=== PATIENT | male | born 1960 | race Caucasian/White ===

== ENCOUNTER 2022-03-06 12:11 | Emergency (ER) | payer BC, SELFPAY ==
[2022-03-06 12:20] VITALS: BP 170/106; PULSE 115; RESP 18; TEMP 35.7; O2SAT 97; BMI 38.0
[2022-03-06 13:03] LABS: Appearance Urine Cloudy (Clear); Bilirubin Urine 1+ (Negative); Color Urine Yellow (Yellow); Glucose Urine 1+ (Negative); Ketones Urine Trace (Negative)
[2022-03-06 13:04] LABS: Blood Urine 3+ (Negative); Leukocyte Esterase Urine Negative (Negative); Nitrite Urine Negative (Negative); Protein Urine 3+ (Negative); RBC Urine >100 (0-2); Specific Gravity Urine >= 1.030 (1.000-1.030); Squamous Epithelial Cell Urine Few (None-Few); Urobilinogen Urine 0.2 (0.2-1.0); pH Urine 5.5 (5.0-8.5)
[2022-03-06 13:05] LABS: Amorphous Sediment Urine Moderate; Bacteria Urine Many; Mucus Urine Moderate
--- NOTE | 2022-03-06 13:06 | ED_ITS ---
HPI - General Adult General Time Seen by Provider: 13:06 Date Seen: 03/06/22 Chief complaint: Urogenital Problems, Male Stated complaint: Difficulty urinating Time Seen by Provider: 03/06/22 12:27 Source: patient Mode of arrival: ambulatory Limitations: no limitations History of Present Illness HPI narrative: Patient is a 61 year white male who is generally very healthy, over new year's and a day or 2 after he developed a flu-like illness with diarrhea body aches chills fever. He seemed to be better today but developed dysuria inability to fully void, some discolored urine, perhaps mild hematuria. He has not had any history urinary tract infection no history of prostatism, no history of prostatitis. The patient has had no chest pain, breathing problem, back pain. He has frequent urination and frequent dysuria, he feels like he is unable to fully void. Has been she has been healthy in the past Related Data Home Medications Medication Instructions Recorded Confirmed No Known Home Medications 03/06/22 03/06/22 Previous Rx's Medication Instructions Recorded ciprofloxacin HCl 500 mg tablet 500 mg PO BID 10 days #20 tabs 03/06/22 (Cipro) phenazopyridine 200 mg tablet 200 mg PO TID PRN pain #10 tabs 03/06/22 (Pyridium) Allergies Allergy/AdvReac Type Severity Reaction Status Date / Time meperidine [From Demerol] Allergy Unknown Verified 03/06/22 12:28 Review of Systems Status of ROS: Reports: 6 or more systems reviewed and unremarkable except as noted in History and below PFSH PFSH Social History Smoking Status: Never smoker How often do you have a drink containing alcohol: never AUDIT-C Alcohol total score: 0 Non-prescribed substance use: denies use Exam Narrative: Exam Narrative: Objective: The patient's vital signs show elevated blood pressure, he appears mildly distressed only by a has some urinary symptoms, he frequently has to void but only voids small amounts Alert orient x3 Abdomen is benign soft Negative CVA tenderness Mental status appropriate Good peripheral perfusion noted skin warm and dry Const: Vital Signs, click to edit/add: Vital Signs - 24 hr 03/06/22 12:20 03/06/22 14:27 Temperature 96.3 F L Pulse Rate [Pulse Oximeter] 115 H 94 Respiratory Rate 18 20 Blood Pressure [Le ft Upper Arm] 170/106 H 160/104 H Pulse Oximetry 97 96 Oxygen Delivery Me thod Room Air Room Air Course Vital Signs Vital signs: Initial Vital Signs Temperature 96.3 F L 03/06/22 12:20 Temperature Source Temporal Artery Scan 03/06/22 12:20 Pulse Rate 115 H 03/06/22 12:20 Respiratory Rate 18 03/06/22 12:20 Blood Pressure 170/106 H 03/06/22 12:20 Blood Pressure Mean 127 03/06/22 12:20 Blood Pressure Position Standing 03/06/22 12:20 Pulse Oximetry 97 03/06/22 12:20 Oxygen Delivery Method 03/06/22 12:20 Vital Signs Temperature 96.3 F L 03/06/22 12:20 Pulse Rate 115 H 03/06/22 12:20 Respiratory Rate 18 03/06/22 12:20 Blood Pressure 170/106 H 03/06/22 12:20 Pulse Oximetry 97 03/06/22 12:20 Oxygen Delivery Method 03/06/22 12:20 Temperature 96.3 F L 03/06/22 12:20 Pulse Rate 94 03/06/22 14:27 Respiratory Rate 20 03/06/22 14:27 Blood Pressure 160/104 H 03/06/22 14:27 Pulse Oximetry 96 03/06/22 14:27 Oxygen Delivery Method 03/06/22 14:27 Medical Decision Making MDM Narrative Medical decision making narrative: Patient has dysuria frequency had a prior viral type illness. Suspect urinary tract infection, he does not gives a history of prostatism or prostatitis. He does have infrequent painful voiding and urethra were urethral irritation symptoms. Will give him an IV fluid, IV morphine for bladder spasm and for discomfort, Pyridium orally, IV Rocephin, will check a urinalysis lab studies. Disposition pending findings above. Addendum: Patient has a lot of hematuria, lot of bacteria in his urine. This is consistent with a urinary tract infection. He feels better after the morphine IV fluid and Rocephin. Upon along go home on Cipro and Pyridium. He also got peridium in the ER. Advised it will turn his urine color orange. He also has an elevated glucose of 260 and needs to have this recheck with his regular physician in the next couple of days. Will prescribe him Cipro and Pyridium for home. He was in agreement with the plan. Lab Data Labs: Lab Results 03/06/22 03/06/22 03/06/22 Range/Units 12:33 13:09 13:09 WBC 10.38 (4.50-11.00) K/uL RBC 5.59 (4.30-5.90) m/uL Hgb 16.8 (13.5-17.5) gm/dL Hct 49.5 (37.0-53.0) % MCV 89 (80-100) fL MCH 30 (26-34) pg MCHC 34 (32-36) gm/dL RDW Coeff of Anabel 11.7 (11.5-15.5) % Plt Count 417 (140-440) K/uL Neut % (Auto) 80.1 H (42.0-72.0) % Lymph % (Auto) 14.0 L (20-44) % [place] % (Auto) 4.8 (0.0-11.0) % Eos % (Auto) 0.6 (0.0-7.0) % Baso % (Auto) 0.3 (0.0-3.0) % Neut # (Auto) 8.30 H (1.7-7.0) K/uL Lymph # (Auto) 1.50 (0.90-2.90) K/uL [place] # (Auto) 0.50 (0.00-0.90) K/UL Eos # (Auto) 0.06 (0.00-0.50) K/uL Baso # (Auto) 0.03 (0.00-0.30) K/uL Sodium 141 (135-149) mmol/L Potassium 3.9 (3.6-5.1) mmol/L Chloride 105 (96-114) mmol/L Carbon Dioxide 25 (20-32) mmol/L BUN 17 (7-30) mg/dL Creatinine 0.8 (0.5-1.5) mg/dL Estimated Creat Clear 107.78 Estimated GFR 101 ml/min Glucose 266 H (60-115) mg/dL Calcium 9.7 (8.4-10.6) mg/dL C-Reactive Protein 1.2 H (0.5-1.0) mg/dL Urine Color Yellow (Yellow) Urine Appearance Cloudy A (Clear) Urine pH 5.5 (5.0-8.5) Ur Specific [place] >= 1.030 (1.000-1.030) Urine Protein 3+ A (Negative) Urine Glucose (UA) 1+ A (Negative) Urine Ketones Trace A (Negative) Urine Blood 3+ A (Negative) Urine Nitrite Negative (Negative) Urine Bilirubin 1+ A (Negative) Urine Urobilinogen 0.2 (0.2-1.0) Ur Leukocyte Esterase Negative (Negative) Urine RBC >100 A (0-2) Urine WBC 5-10 A (0-5) Ur Squamous Epith Cells Few (None-Few) Amorphous Sediment Moderate A (None) Urine Bacteria Many A (None) Urine Mucus Moderate A (None) Discharge Plan Discharge Clinical Impression: Urinary tract infection, Elevated blood pressure reading, Hyperglycemia Patient Disposition: Home w/ Parent or Adult Condition: Improved Instructions: Urinary Tract Infection in Men (DC) Additional Instructions: Light activity today, then activity as tolerated. Cipro 250 mg twice a day times 10 days, Pyridium as needed for urinary symptoms. Update regular physician within the next couple of days if not improving, return to ED sooner problems concerns worsening. Recheck blood pressure with regular doctor, and a fasting blood sugar to check his blood sugar again as it is high today. Activity Level: Light activity Discharge Diet: Regular Prescriptions: New ciprofloxacin HCl [Cipro] 500 mg tablet 500 mg PO BID 10 Days Qty: 20 0RF phenazopyridine [Pyridium] 200 mg tablet 200 mg PO TID PRN (Reason: pain) Qty: 10 0RF No Action No Known Home Medications Stand Alone Forms: [employer] Info Instructions
[2022-03-06 13:12] LABS: Basophils Absolute Auto 0.03 K/uL (0.00-0.30); Basophils Percent Auto 0.3 % (0.0-3.0); Eosinophils Absolute Auto 0.06 K/uL (0.00-0.50); Eosinophils Percent Auto 0.6 % (0.0-7.0); Hematocrit 49.5 % (37.0-53.0); Hemoglobin* 16.8 gm/dL (13.5-17.5); Immature Granulocytes Abs Auto 0.02 K/uL (0.00-0.30); Immature Granulocytes Pct Auto 0.2 %; Mean Corpuscular HGB Conc 34 gm/dL (32-36); Mean Corpuscular Hemoglobin 30 pg (26-34); Mean Corpuscular Volume 89 fL (80-100); Monocytes Percent Auto 4.8 % (0.0-11.0); Neutrophils Percent Auto 80.1 % (42.0-72.0); Platelet Count* 417 K/uL (140-440); RDW Coefficient of Variation % 11.7 % (11.5-15.5); Red Blood Count 5.59 m/uL (4.30-5.90); White Blood Count* 10.38 K/uL (4.50-11.00)
[2022-03-06 13:14] LABS: Slide Review Reflex No
[2022-03-06] MEDS: PHENAZOPYRIDINE HCL 200 MG TABLET PO (13:20)
[2022-03-06] MEDS: 0.9 % SODIUM CHLORIDE 1000 ml 1,000 ML 6000 ML IV (13:20)
[2022-03-06] MEDS: MORPHINE 4 MG/ML INJ 2 MG IVP (13:21)
[2022-03-06] MEDS: cefTRIAXone 1 GM in 0.9 % SODIUM CHLORIDE Mini-bag 100 ML IVPB (13:23)
[2022-03-06 13:31] LABS: Chloride* 105 mmol/L (96-114); Potassium* 3.9 mmol/L (3.6-5.1); Sodium* 141 mmol/L (135-149)
[2022-03-06 13:34] LABS: Blood Urea Nitrogen* 17 mg/dL (7-30); Carbon Dioxide* 25 mmol/L (20-32); Creatinine* 0.8 mg/dL (0.5-1.5); Est. Creatinine Clearance* 107.78; Estimated Glomerular Filt Rate 101 ml/min
[2022-03-06 13:35] LABS: Calcium* 9.7 mg/dL (8.4-10.6); Glucose* 266 mg/dL (60-115)
[2022-03-06 13:37] LABS: C Reactive Protein* 1.2 mg/dL (0.5-1.0)
[2022-03-06 14:27] VITALS: BP 160/104; PULSE 94; RESP 20; O2SAT 96
== END 2022-03-06 14:30 | disposition home or self-care (01) ==
PROVIDERS: Emergency Provider Family Medicine
DX: N39.0 Urinary tract infection, site not specified (principal); R03.0 Elevated blood-pressure reading, without diagnosis of hypertension; R73.9 Hyperglycemia, unspecified
CPT/HCPCS: 36415; 80048; 81001; 85025; 86140; 87086; 96365; 96375; 99284; A9270; J0696; J2270; J7030

== ENCOUNTER 2023-08-12 06:13 | Day surgery (SDC) | payer BC, SELFPAY ==
[2023-08-12] VITALS (18 sets, daily range): BP systolic 132–182; BP diastolic 82–112; PULSE 56–82; RESP 16; TEMP 36.2–36.9; O2SAT 92–100; BMI 33.0
--- OUTSIDE RECORDS SUMMARY | 2023-08-12 06:16 | XMS_ITS | Clinical Summary ---
Author Organization [facility] Address [place], [place] [address] Care Team Providers Care American Sign Language Interpreter Name Role Phone Marlene Moore RN Unavailable [phone] Jhonatan Boone MD Primary Care Provider Allergies Active Allergy Reactions Criticality Noted Date Comments Meperidine *Unknown 05/01/2015 surgery Medications Medication Sig Dispensed Refills Start Date End Date Status blood-glucose meterIndications: Type 2 diabetes mellitus without complication, without long-term current use of insulin (HC) Inject subcutaneous. Dispense meter, test strips, lancets covered by pt ins. E11.9 NIDDM type II - Test 2 times/day. Reason: High A1C 1 Each 03/20/2022 Active aspirin (ECOTRIN) 81 mg enteric coated tabletIndications :Type 2 diabetes mellitus without complication, without long-term current use of insulin (HC) Take 1 Tablet (81 mg) by mouth once daily with a meal. 0 04/17/2022 Active Accu-Chek Softclix LancetsIndication s:Type 2 diabetes mellitus without complication, without long-term current use of insulin (HC) USE TO TEST 2 TIMES DAILY 200 Each 3 05/27/2022 Active polyethylene glycol-electrolyt e (GOLYTELY) 236-22.74-6.74 -5.86 gram suspensionIndicat ions:Encounter for screening colonoscopy Drink 2 liters the day before the procedure and 2 liters 6 hours prior to procedure. 4000 mL 09/06/2022 Active lisinopriL (PRINIVIL; ZESTRIL) 10 mg tabletIndications :Benign essential HTN Take 1 Tablet (10 mg) by mouth once daily. 90 Tablet 3 01/16/2023 Active Potassium Citrate 15 mEq Extended-Release tabletIndications :Uric acid kidney stone Take 1 Tablet (15 mEq) by mouth once daily. 90 Tablet 3 01/16/2023 Active metFORMIN (GLUCOPHAGE XR) 500 mg Extended-Release tabletIndications :Type 2 diabetes mellitus without complication, without long-term current use of insulin (HC) Take 2 Tablets (1,000 mg) by mouth two times daily with meals. 360 Tablet 1 01/16/2023 Active blood sugar diagnostic (Accu-Chek Guide test strips) stripIndications: Type 2 diabetes mellitus without complication, without long-term current use of insulin (HC) USE TO TEST 2 TIMES PER DAY 200 Each 3 08/06/2023 Active blood sugar diagnostic (Blood Glucose Test) stripIndications: Type 2 diabetes mellitus without complication, without long-term current use of insulin (HC) Test two times per day. 100 Each 03/20/2022 Discontinued Active Problems Problem Noted Date Diagnosed Date Lipoma of right upper extremity 05/14/2023 Skin tag, large right hamstring area 05/14/2023 Colon polyp 09/12/2022 Overview: Colonoscopy 08/2022 2-TA, repeat in 7 years Uric acid kidney stone 03/20/2022 Type 2 diabetes mellitus wit hout complication, without long-term current use of insulin 03/20/2022 Hematuria 03/20/2022 Benign essential HTN 03/20/2022 Obesity, Class II, BMI 35-39.9 03/20/2022 Resolved Problems Problem Noted Date Diagnosed Date Resolved Date Obesity 03/12/2022 03/20/2022 Encounters Date Type Department Care Team Description 08/06/2023 Refill [facility] [address] [place] [address] Jhonatan Boone MD Refill Request (Accu-chek Guide Test Strips) 07/31/2023 11:50 AM CDT Preop Visit [facility] [address] [place] [address] Jhonatan Boone MD Diabetes (6 month follow up); Preoperative Exam (DOS: [facility] 07/30/2023 Travel 06/11/2023 2:00 PM CDT Office Visit [facility] [address] [place] [address] Francheska Barry MD Consult (Gallbladder referred by Dr. Boone) 06/10/2023 Travel 06/03/2023 Travel 05/31/2023 Telephone [facility] [address] [facility] [place] [address] Jhonatan Boone MD Follow Up 05/31/2023 Orders Only [facility] [address] [place] [address] Jhonatan Boone MD <No scans attached> 05/30/2023 10:30 AM CDT Ancillary Procedure [facility] [address] [place] [address] 05/30/2023 Travel 05/14/2023 10:55 AM CDT Office Visit [facility] [address] [facility] [place] [address] Jhonatan Boone MD Pain (Pain started in mid-right back, radiated into abdomen, started 05/08/2023, vomiting, diarrhea); Lump (Inside of right arm, by elbow, noticed about 3 weeks ago) 05/14/2023 Travel from Last 3 Months Immunizations Name Administration Dates Next Due COVID-19 Vaccine Spikevax (M oderna 50mcg/0.5mL) 12YO+ [id number] Formula PF 01/02/2023 COVID-19 vaccine (Pfizer-Bio NTech 30mcg/0.3mL) 12YO+ BIVALENT PF, MDV 12/24/2021 COVID-19 vaccine (Pfizer-Bio NTech 30mcg/0.3mL) 12YO+ FAWN-SUCROSE PF, MDV 07/06/2021 COVID-19 vaccine (Pfizer-Bio NTech 30mcg/0.3mL) PF, MDV 01/18/2021,05/06/2020,04/15/2020 Influenza RIV4 (Age 18+ Year s) PRESERV FREE 12/19/2020 Influenza, IIV4 11/19/2022, 0,12/22/2018,12/10 Influenza,CCIIV4 PRESERV FREE 12/24/2021 Pneumococcal Conj 20-valent (Prevnar 20) 01/16/2023 RSV, Recombinant ADJ Reconst ituted (Arexvy 120MCG/0.5mL) 03/20/2023 Tdap 01/16/2023 Zoster (Shingrix-RZV, recombinant) 03/20/2023, Family History Medical History Relation Name Comments Other Maternal Grandfather Alz kim's Anesthesia Problem No Family History Relation Name Status Comments Maternal Grandfather Social History Tobacco Use Types Packs/Day Years Used Date Smoking Tobacco: Never Tobacco Cessation:Counseling Given: No Alcohol Use Standard Drinks/Week Comments Yes 0 (1 standard drink = 0.6 oz pur e alcohol) very little PHQ-2 Answer Date Recorded PHQ-2 TOTAL SCORE 0 07/31/2023 Social Connections Answer Date Recorded Frequency of Communication with Friends and Fami ly 0 05/14/2023 Financial Resource Strain Answer Date R ecorded Difficulty of Paying Living Expenses 3 05/14/2023 Difficulty of Paying Living Expenses Not on file 05/14/2023 Food Insecurity Answer Date Recorded Worried About Running Out of Food in the Last Ye ar 1 05/14/2023 Transportation Needs Answer Date Record ed Lack of Transportation (Medical) 1 05/14/2023 Housing Stability Answer Date Recorded Unable to Pay for Housing in the Last Year 1 05/14/2023 Sex and Gender Information Value Date Recorded Sex Assigned at Not on file Gender Identity Not on file Sexual Orientation Not on file Obstetrics History Last Filed Vital Signs Vital Sign Reading Time Taken Comments Blood Pressure 128/75 07/31/2023 12:14 PM CDT Pulse 79 07/31/2023 11:39 AM CDT Temperature 36.8 ??C (98.3 ??F) 05/01/2015 3:00 PM CS T Respiratory Rate 16 09/10/2022 11:45 AM CDT Oxygen Saturation 98% 07/31/2023 11:39 AM CDT Inhaled Oxygen Concentration - - Weight 104.3 kg (230 lb) 07/31/2023 11:39 AM CDT Height 179 cm (5' 10.47) 07/31/2023 11:39 AM CD T Body Mass Index 32.56 07/31/2023 11:39 AM CDT Plan of Treatment Upcoming Encounters Date Type Department Care Team (Late st Contact Info) Description 08/12/2023 8:00 AM CDT Office Visit [facility] at [facility] [address] [place] [address] Francheska Barry MD [address] [place] [address] 01/23/2024 10:30 AM HUMAN RESOURCES TALENT MANAGER Office Visit [facility] [address] [place] [address] Jhonatan Boone MD [address] [place] [address] Health Maintenance Due Date Last Done Comments Influenza for age 50-64 11/02/2023 11/20/19, 12/24/2021, 12/19/2020, Additional history exists BMI (ht and wt on same day) for age 18+ 07/30/2024 07/31/2023, 01/16/2023, 07/16/2022, Additional history exists Depression screening for age 12+ 07/30/2024 07/31/19, 07/16/2022 Lipids for age 45-75 01/17/2028 01/16/2023, 03/12/19 Colonoscopy through age 75 09/10/202909/10, 09/10/2022, 09/10/2022 Tetanus booster 01/16/2033 01/16/2023 HIV for age 15-65 Completed 03/12/2022 Hepatitis C screening for ag e 18-79 Completed 03/12/2022 COVID-19 vaccine series Completed 01/03/20, 12/24/2021, 07/06/2021, Additional history exists Pneumococcal series for age 6-64 Completed 01/17/20 Tdap Completed 01/16/2023 Zoster (shingles) series for age 50+ Completed 03/20/2023, 01/16/2023 Procedures Procedure Name Priority Date/Time Associated Diagnosis Comments HEMOGLOBIN Routine 07/31/2023 11:33 AM CDT Preop examination PSA TOTAL SCREEN Routine 07/31/2023 11:3 3 AM CDT Prostate cancer screening BASIC METABOLIC PANEL Routine 07/31/2023 11:33 AM CDT Type 2 diabetes mellitus without complication, without long-term current use of insulin (HC) HEMOGLOBIN A1C Routine 07/31/2023 11:33 AM CDT Type 2 diabetes mellitus without complication, without long-term current use of insulin (HC) PATH TISSUE EXAM Routine 06/11/2023 3:00 PM CDT Skin tag, large right hamstring area US ABDOMEN LIMITED RUQ Routine 05/30/2023 10:58 AM CDT Abdominal pain, RUQ (right upper quadrant) CBC WITH AUTO DIFFERENTIAL Routine 05/14/2023 11:41 AM CDT Abdominal pain, RUQ (right upper quadrant) BASIC METABOLIC PANEL Routine 05/14/2023 11:41 AM CDT Abdominal pain, RUQ (right upper quadrant) HEPATIC FUNCTION PANEL Routine 05/14/2023 11:41 AM CDT Abdominal pain, RUQ (right upper quadrant) CBC WITH AUTO DIFFERENTIAL Routine 05/14/2023 11:41 AM CDT Abdominal pain, RUQ (right upper quadrant) LIPID PANEL W REFLEX MEASURED LDL Add On 01/16/2023 9:10 AM HUMAN RESOURCES TALENT MANAGER Type 2 diabetes mellitus without complication, without long-term current use of insulin (HC) COLONOSCOPY SCREENING Routine 09/10/2022 10:20 AM CDT Screening for colon cancer LC HIV-1/O/2, 4TH GENERATION Routine 03/12/2022 11:00 AM HUMAN RESOURCES TALENT MANAGER Screening for HIV (human immunodeficiency virus) LC HCV ANTIBODY RFX TO QUANT PCR Routine 03/12/2022 11:00 AM HUMAN RESOURCES TALENT MANAGER Need for hepatitis C screening test from Last 3 Months or Most Recently Relevant to Health Maintenance Results * HEMOGLOBIN (07/31/2023 11:33 AM CDT) HEMOGLOBIN 15.3 13.5 - 17.5 g/dL 07/31/2023 11:43 AM CDT [facility] MCV 90 80 - 100 fL 07/31/2023 11:43 AM CDT [facility] Blood BLOOD SPECIMEN / Unknown Venipuncture / Unknown 07/31/2023 11:33 AM CDT 07/31/2023 11:34 AM CDT Jhoantan Boone MD HEMATOLOGY Performing Organization Address City/State/[facility] Co de Phone Number [facility] [address] [place] [address], * HEMOGLOBIN A1C MONITORING (POCT) (07/31/2023 11:33 AM CDT) HEMOGLOBIN A1C MONITORING (POCT) 5.9 <=6.4 % 07/31/2023 11:44 AM CDT [facility] Blood BLOOD SPECIMEN / Unknown Venipuncture / Unknown 07/31/2023 11:33 AM CDT 07/31/2023 11:34 AM CDT Narrative [facility] - 07/31/2023 11:44 AM CDT ? (<=6.9%) ? Indicates good control ? (7.0% to 7.9%) ? Indicates fair control ? (>=8.0%) ? Indicates poor control ?? NOTE: ??These thresholds are guidelines and ?individual targets may vary. Falsely low levels may be seen with: Recent Transfusion, Recent Significant Blood Loss, Hemolytic Diseases, or Falsely elevated levels may be seen with: Untreated Anemias, Splenectomy ? Jhonatan Boone MD CHEMISTRY [facility] [address] [place] [address], * (ABNORMAL) BASIC METABOLIC PANEL (07/31/2023 11:33 AM CDT) Only the most recent of2 resultswithin the time period is included. SODIUM 139 136 - 145 mmol/L 08/01/2023 1:10 AM CDT [facility] POTASSIUM 4.6 3.5 - 5.1 mmol/L 08/01/2023 1:10 AM CDT [facility] CHLORIDE 100 98 - 107 mmol/L 08/01/2023 1:10 AM T [facility] CO2,TOTAL 28 22 - 29 mmol/L 08/01/2023 1:10 AM T [facility] ANION GAP 11 5 - 18 08/01/2023 1:10 AM CDT [facility] GLUCOSE 109(H) 70 - 99 mg/dL 08/01/2023 1:10 AM T [facility] CALCIUM 9.9 8.8 - 10.2 mg/dL 08/01/2023 1:10 AM T [facility] BUN 13 8 - 23 mg/dL 08/01/2023 1:10 AM T [facility] CREATININE 0.81 0.70 - 1.20 mg/dL 08/01/2023 1:10 AM T [facility] BUN/CREAT RATIO 16 10 - 20 4 1:10 AM T [facility] eGFR >90 >90 mL/min/1.7 3m2 08/01/2023 1:10 AM T [facility] Comment:As of 2021, eG FR is calculated by the CKD-EPI creatinine equation without race adjustment. ??eGFR can be influenced by muscle mass, exercise, and diet. ??The reported eGFR is an estimation only and is only applicable if the renal function is stable. Blood BLOOD SPECIMEN / Unknown Venipuncture / Unknown 07/31/2023 11:33 AM CDT 07/31/2023 11:34 AM CDT Jhonatan Boone MD CHEMISTRY Performing Organization Address [facility] de Phone Number [facility] [address] * PSA TOTAL SCREEN (07/31/2023 11:33 AM CDT) PSA TOTAL (SCREEN) 2.88 <4.00 ng/mL 08/01/2023 1:10 AM CDT [facility] Blood BLOOD SPECIMEN / Unknown Venipuncture / Unknown 07/31/2023 11:33 AM CDT 07/31/2023 11:34 AM CDT Narrative [facility] - 08/01/2023 1:10 AM CDT The test method changed on 08/27/2022. If this test has been used for serial monitoring, rebaselining is recommended. Rebaselining consists of 2 measurements, collected 3-6 weeks apart. The [employer]ys total PSA assay is an electrochemiluminescence immunoassay ECLIA performed on the Kitty Jody e immunoassay analyzers. Values obtained with different assay methods may be different and cannot be used interchangeably. Jhonatan Boone MD LABORATORY Performing Organization Address [facility] de Phone Number [facility] [address] * PATH TISSUE EXAM (06/11/2023 3:00 PM CDT) Case Report Pathology Report ?Case: [id number] ? Authorizing Provider: ??Francheska Barry MD ??Collected: ? 06/11/2023 1500 ? Ordering Location: ? [facility] ?? Received: ?06/11/2023 1539 ? Clinic ? Pathologist: ? Sarika Choi MD ? Specimen: ?Right Thigh, right posterior thigh skin tag ? 06/16/2023 10:58 AM CDT [facility] [employer] [facility] Final Diagnosis SKIN, RIGHT POSTERIOR THIGH, EXCISION: 1. Nevus lipomatosus superficialis 2. Negative for malignancy 06/16/2023 10:58 AM CDT [facility] [employer] LABORATORY-C ENTRAL LABORATORY Clinical Information Skin tag 06/16/2023 10:58 AM CDT [facility] [employer] LABORATORY-C ENTRAL LAB[facility]ATORY Gross Description A) Received in formalin, labeled with the patient's name and right posterior skin tag, is a 4.3 x 3.5 x 2.6 cm wrinkled light ortiz soft flocculent skin nodule, inked blue at the base and sectioned revealing a fibrofatty core. ??The entire specimen is submitted in 8 cassettes. TRB 06/12/2023 06/16/2023 10:58 AM CDT [facility] Microscopic Description The final diagnosis is based on microscopic examination of appropriate sections of all specimens. The epidermis is unremarkable. Within the upper dermis there are lobules of mature adipocytes located preferentially around small blood vessels. The presence of ??blue ink is confirmed on tissue sections. 06/16/2023 10:58 AM CDT [facility] Additional Information Interpreted at [facility] - [address] [place] [address] [address] [address] 06/16/2023 10:58 AM CDT [facility] Other (Right Thigh) Non-Blood / Unknown 06/11/2023 3:00 PM CDT 06/11/2023 3:39 PM CDT Francheska Barry MD PATHOLOGY/CYTOLO GY [facility] [address] [place] [address], [place] * US ABDOMEN LIMITED RUQ (05/30/2023 10:58 AM CDT) Anatomical Region Laterality Modality Abdomen, LIVER Ultrasound 05/31/2023 10:0 7 AM CDT Impressions 05/31/2023 10:07 AM CDT Cholelithiasis with irregular gallbladder wall thickening suggesting cholecystitis. Dictated by Agustin Huber MD @ 05/31/2023 10:07:30 AM (Electronically Signed) Narrative 05/31/2023 10:07 AM CDT For Patients: ??As a result of the Century Cures Act, medical imaging exams and procedure reports are released immediately into your electronic medical record. ??You may view this report before your referring provider. ??If you have questions, please contact your health care provider. INDICATION: Right upper quadrant abdomen pain. TECHNIQUE: Ultrasound abdomen limited. ??Sonographic images of the right upper quadrant were obtained using stearns-scale and color Doppler images. COMPARISON: CT abdomen and pelvis March 20, 2022. FINDINGS: Liver: Normal in size and echotexture. ??No suspicious masses. ??No intrahepatic biliary dilatation. ?? Gallbladder: Multiple gallbladder stones. Irregular wall thickening measuring 8 mm. Common bile duct: 4 mm. ?? Pancreas: Unremarkable. ?? Right kidney: Normal in size. ??Normal echotexture and cortex. ??No suspicious masses, stones, or hydronephrosis. Vasculature: Proximal abdominal aorta and IVC are unremarkable. ?? Procedure Note Agustin Huber MD - 05/31/2023 For Patients: As a result of the Cures Act, medical imagingexams and procedure reports are released immediately into your electronicmedical record. You may view this report before your referring provider.If you have questions, please contact your health care provider. INDICATION: Right upper quadrant abdomen pain. TECHNIQUE: Ultrasound abdomen limited. Sonographic images of the right upperquadrant were obtained using stearns-scale and color Doppler images. COMPARISON: CT abdomen and pelvis March 20, 2022. FINDINGS: Liver: Normal in size and echotexture. No suspicious masses. Nointrahepatic biliary dilatation. Gallbladder: Multiple gallbladder stones. Irregular wall thickeningmeasuring 8 mm. Common bile duct: 4 mm. Pancreas: Unremarkable. Right kidney: Normal in size. Normal echotexture and cortex. Nosuspicious masses, stones, or hydronephrosis. Vasculature: Proximal abdominal aorta and IVC are unremarkable. IMPRESSION: Cholelithiasis with irregular gallbladder wall thickening suggestingcholecystitis. Dictated by Agustin Huber MD @ 05/31/2023 10:07:30 AM (Electronically Signed) Jhonatan Boone MD US * (ABNORMAL) CBC WITH AUTO DIFFERENTIAL (05/14/2023 11:41 AM CDT) WHITE BLOOD COUNT 11.9(H) 4.5 - 11.0 thou/cu mm 05/14/2023 12:01 PM CDT [facility] RED BLOOD COUNT 4.86 4.30 - 5.90 mil/cu mm 05/14/2023 12:01 PM CDT [facility] HEMOGLOBIN 15.0 13.5 - 17.5 g/dL 05/14/2023 12:01 PM CDT [facility] HEMATOCRIT 44.2 37.0 - 53.0 % 05/14/2023 12:01 PM CDT [facility] MCV 91 80 - 100 fL 05/14/2023 12:01 PM CDT [facility] MCH 30.9 26.0 - 34.0 pg 05/14/2023 12:01 PM CDT [facility] MCHC 33.9 32.0 - 36.0 g/dL 05/14/2023 12:01 PM CDT [facility] RDW 12.6 11.5 - 15.5 % 05/14/2023 12:01 PM CDT [facility] PLATELET COUNT 459(H) 140 - 440 thou/cu mm 05/14/2023 12:01 PM CDT [facility] MPV 9.0 6.5 - 11.0 fL 05/14/2023 12:01 PM CDT [facility] % NEUT 68.1 % 05/14/2023 12:01 PM CDT [facility] % LYMPH 22.3 % 05/14/2023 12:01 PM CDT [facility] % MONO 7.7 % 05/14/2023 12:01 PM CDT [facility] % EOS 1.6 % 05/14/2023 12:01 PM CDT [facility] % BASO 0.3 % 05/14/2023 12:01 PM CDT [facility] ABSOLUTE NEUTROPHILS 8.1(H) 1.7 - 7.0 thou/cu mm 05/14/2023 12:01 PM CDT [facility] ABSOLUTE LYMPHOCYTES 2.7 0.9 - 2.9 thou/cu mm 05/14/2023 12:01 PM CDT [facility] ABSOLUTE MONOCYTES 0.9(H) <0.9 thou/cu mm 05/14/2023 12:01 PM CDT [facility] ABSOLUTE EOSINOPHILS 0.2 <0.5 thou/cu mm 05/14/2023 12:01 PM CDT [facility] ABSOLUTE BASOPHILS 0.0 <0.3 thou/cu mm 05/14/2023 12:01 PM T [facility] Blood BLOOD SPECIMEN / Unknown Venipuncture / Unknown 05/14/2023 11:41 AM CDT 05/14/2023 11:42 AM CDT Jhonatan Boone MD HEMATOLOGY [facility] [address] [place] [address], [place] [phone] * HEPATIC FUNCTION PANEL (05/14/2023 11:41 AM CDT) ALBUMIN 4.5 4.0 - 4.9 g/dL 05/14/2023 10:09 PM CDT [facility] PROTEIN,TOTAL 7.1 6.0 - 8.0 g/dL 05/14/2023 10:09 PM CDT [facility] BILIRUBIN,TOTAL 0.5 0.0 - 1.2 mg/dL 05/14/2023 10:09 PM CDT [facility] BILIRUBIN,DIRECT <0.2 0.0 - 0.3 mg/dL 05/14/2023 10:09 PM CDT [facility] BILIRUBIN,INDIRE CT 05/14/2023 10:09 PM CDT [facility] Comment:Unable to calculate, Direct Bili <0.2 ALK PHOSPHATASE 78 40 - 129 IU/L 05/14/2023 10:09 PM CDT [facility] ALT (SGPT) 20 10 - 50 IU/L 05/14/2023 10:09 PM CDT [facility] AST (SGOT) 18 10 - 50 IU/L 05/14/2023 10:09 PM CDT [facility] Blood BLOOD SPECIMEN / Unknown Venipuncture / Unknown 05/14/2023 11:41 AM CDT 05/14/2023 11:42 AM CDT Jhonatan Boone MD CHEMISTRY [facility] [address] [address], [place] * (ABNORMAL) LIPID PANEL W REFLEX MEASURED LDL (01/16/2023 9:10 AM HUMAN RESOURCES TALENT MANAGER) CHOLESTEROL,TOTAL 195 100 - 199 mg/dL 01/16/2023 5:15 PM HUMAN RESOURCES TALENT MANAGER [facility] Comment: Cholesterol, Total Reference Ranges Desirable <200 mg/dL Borderline 200-239 mg/dL High >=240 mg/dL TRIGLYCERIDES 161(H) <150 mg/dL 01/16/2023 5:15 PM HUMAN RESOURCES TALENT MANAGER [facility] HDL CHOLESTEROL 46 >40 mg/dL 5:15 PM HUMAN RESOURCES TALENT MANAGER [facility] NON-HDL CHOLESTEROL 149(H) <145 mg/dl 01/16/2023 5:15 PM HUMAN RESOURCES TALENT MANAGER [facility] CHOL/HDL RATIO 4.24 <4.50 01/16/2023 5:15 PM HUMAN RESOURCES TALENT MANAGER [facility] LDL CHOLESTEROL 117 <=130 mg/dL 01/16/2023 5:15 PM HUMAN RESOURCES TALENT MANAGER [facility] VLDL CHOLESTEROL 32(H) <=30 mg/dL 01/16/2023 5:15 PM HUMAN RESOURCES TALENT MANAGER [facility] PROVIDER ORDERED STATUS RANDOM 01/16/2023 5:15 PM HUMAN RESOURCES TALENT MANAGER [facility] Blood BLOOD SPECIMEN / Unknown Venipuncture / Unknown 01/16/2023 9:10 AM HUMAN RESOURCES TALENT MANAGER 01/16/2023 9:10 AM HUMAN RESOURCES TALENT MANAGER Jhonatan Boone MD [facility] [address] [place] [address], [place] * COLONOSCOPY (09/10/2022 10:28 AM CDT) 09/10/2022 10:2 8 AM CDT Narrative Transcriptions Jimbo Horton MD - 09/10/2022 11:39 AM CDT Patient Name: Pardeep Renteria Procedure Date: 09/10/2022 Gender: Male Date of : 1960 Admit Type: Outpatient Procedure: Colonoscopy Proceduralist: Jimbo Horton MD , Rosario Sung (Nurse), Regina Jacobo (Nurse) Referring MD: Jhonatan Boone Indications/Pre-Op Diagnosis: Screening for colorectal malignant neoplasm, This is the patient's first colonoscopy Medications: Fentanyl 75 micrograms IV, Midazolam 2 mgIV, The level of sedation administered wasmoderate Procedure Description: The patient had risks, benefits and alternatives explained to andgave informed consent. The patient had a stable cardiopulmonary status and judged an adequate candidate for conscious sedation. The endoscope [id number] was passed through the anus andadvanced to the cecum, identified by appendiceal orifice and ileocecal valve.The colonoscopy was performed without difficulty. The patient toleratedthe procedure well. The quality of the bowel preparation was good. The ileocecal valve, appendiceal orifice, and rectum were photographed. Complications: No immediate complications. Estimated Blood Loss & Specimen: Estimated blood loss: none. Specimen collected - Yes and sent to Laboratory Findings: The perianal and digital rectal examinations were normal. Two sessile polyps were found in the transverse colon. The polypswere 3 mm in size. These polyps were removed with a cold snare. Resectionand retrieval were complete. Non-bleeding internal hemorrhoids were found. The hemorrhoids weremild. The exam was otherwise without abnormality. Impressions/Post-Op Diagnosis: - Two 3 mm polyps in the transverse colon, removed with a cold snare. Resected and retrieved. - Non-bleeding internal hemorrhoids. - The examination was otherwise normal. Recommendation: - Patient has a contact number available for emergencies. The signsand symptoms of potential delayed complications were discussed with the patient. Return to normal activities tomorrow. Written discharge instructions were provided to the patient. - Resume previous diet. - Continue present medications. - Await pathology results. - Repeat colonoscopy is recommended. The colonoscopy date will be determined after pathology results from today's exam become available for review. - Patient's sedation for a repeat study will require Anesthesia staff assistance given history of demerol allergy. Moderate Sedation: A time out was performed before the procedure. Moderate (conscious) sedation was administered by the endoscopy nurse and supervised bythe endoscopist. The following parameters were monitored: oxygensaturation, heart rate, blood pressure, EKG, CO2, respiratory rate, adequacy of pulmonary ventilation and reponse to care. Please refer to the patient's medical record flowsheets and nursing notes for moderate sedation details. Total physician intraservice time was 17 minutes. Jimbo Horton MD 09/10/2022 11:36:14 AM This report has been signed electronically. Note Initiated On: 09/10/2022 10:28 AM Procedure Code(s): --- Professional --- 63938, Colonoscopy, flexible; with removalof tumor(s), polyp(s), or other lesion(s) bysnare technique Diagnosis Code(s): --- Professional --- Z12.11, Encounter for screening formalignant neoplasm of colon D12.3, Benign neoplasm of transverse colon (hepatic flexure or splenic flexure) K64.8, Other hemorrhoids CPT copyright 2021 [employer]. All rights reserved. The codes documented in this report are preliminary and upon court liaison reviewmay be revised to meet current compliance requirements. Scope In: 11:14:59 AM Scope Withdrawal Time 0 hours 8 minutes 6 seconds Scope Out: 11:26:39 AM Jimbo Horton MD PROCEDURE ORD * LC HCV ANTIBODY RFX TO QUANT PCR (03/12/2022 11:00 AM HUMAN RESOURCES TALENT MANAGER) HCV Ab <0.1 0.0 - 0.9 s/co ratio 03/15/2022 8:10 AM HUMAN RESOURCES TALENT MANAGER [facility] ([facility]) Blood BLOOD SPECIMEN / Unknown Venipuncture / Unknown 03/12/2022 11:00 AM HUMAN RESOURCES TALENT MANAGER 03/12/2022 11:42 AM HUMAN RESOURCES TALENT MANAGER FOR [facility]OT[facility]IC TESTING (CET) - 03/15/2022 8:10 AM HUMAN RESOURCES TALENT MANAGER Performed at: ??01 - [address] ??[id number] Geospatial Information Scientist: Seven Soto MD, Phone: ??[phone] Jhonatan Boone MD LABORATORY Performing Organization Address [facility]/ZIP Co de Phone Number [facility] ([facility]ET) [address] [place] [address] * LC HIV-1/O/2, 4TH GENERATION (03/12/2022 11:00 AM HUMAN RESOURCES TALENT MANAGER) HIV Scr 4th Gen Non Reactive Non Reactive 03/15/2022 3:07 AM HUMAN RESOURCES TALENT MANAGER [facility] ([facility]) Comment: HIV Negative HIV-1/HIV-2 antibodies and HIV-1 p24 antigen were NOT detected. There is no laboratory evidence of HIV infection. Blood BLOOD SPECIMEN / Unknown Venipuncture / Unknown 03/12/2022 11:00 AM HUMAN RESOURCES TALENT MANAGER 03/12/2022 11:41 AM HUMAN RESOURCES TALENT MANAGER FOR ESOTERIC TESTING (CET) - 03/15/2022 3:07 AM HUMAN RESOURCES TALENT MANAGER Performed at: ??[address] - [address] ??[id number] Geospatial Information Scientist: Seven Soto MD, Phone: ??[phone] Jhonatan Boone MD LABORATORY [facility] ([facility]) [address] [place] [address] from Last 3 Months or Most Recently Relevant to Health Maintenance Care Teams American Sign Language Interpreter Relationship Specialty Start Date End Date Jhonatan Boone MD [address] [place] [address] PCP - General Family Practice 07/16/22 Marlene Moore, RN [address] [place] [id number] Manager Animal 04/08/22
--- OUTSIDE RECORDS SUMMARY | 2023-08-12 06:16 | XMS_ITS | Data Portability ---
Author Organization [facility], [facility] Address [address] [place] [address] Care Team Providers Care Area Supervisor Name Role Phone MELODY BOONE Primary Care Provider Assessment Encounter Date Assessment Date Assessment LastModified by Organization Details LastModified Time 10/17/2022 10/17/2022 62 year old male with gross hematuria and nephrolithias is. Not available 10/17/2022 15:53:43 Plan of Treatment Reminders Order Date Submit Date Provider Last Modified By Organization Details Last Modified Time Details Appointments None recorded. Lab stone risk analysis panel [address] [facility], [address], [address], [place], [address], 3 18:32:18 Referral None recorded. Procedures None recorded. Surgeries None recorded. Imaging US, kidney 2022 023 [email or web address] [facility], [address], [address], [place], [address], 3 08:47:37 Medication Orders None recorded. Patient TargetsNo targets recorded. Patient Instructions Encounter Date Encounter Id Patient Instructions Last Modified By Organization Details Last Modified Time 10/17/2022 [id number] Nephrolithiasis: He has passed multiple stones which ultimately were primarily uric acid. This makes sense with his history of diabetes mellitus. Obviously this is his main risk factor here, and I think as this is addressed, he will see improvement. That being said, we should check a 24 hour urine collection and also assess his urinary pH to see what we need to do to prevent future stone episodes. I also recommend we check an ultrasound for a baseline stone burden as well. Gross hematuria: We discussed the possible causes for this. Under normal circumstances, a cystoscopy would be recommended, but given the fact that this was acutely during passage of a kidney stone, I think the yield on this would be extremely low. If he has future episodes, a scope will be performed. Not available 10/17/2022 15:55:41 Reason for Referral None Reported. Results Created Date Observation Date Name Description Value Unit Range Abnormal Flag LastModifiedBy Organization Detail LastModifiedTime 10/22/1910/21/2022 UROST ONE 24 volume 2.250 L 0.510- 2.560 Not Available [facility] [address] [place] [address], [place], [address], 10/21/2022 18:32:17 10/22/19 23 10/21/2022 UROST ONE 24 pH 6.10 5.60-7 .10 Not Available [facility] [address] [place] [address], [place], [address], 10/21/2022 18:32:17 10/22/19 23 10/21/2022 UROST ONE 24 U chloride 61.0 mmol/ L Not Available [facility] [address] [place] [address], [place], [address], 10/21/2022 18:32:17 10/22/19 23 10/21/2022 UROST ONE 24 U creatinine 62.0 mg/dL Not Available [facility] [address] [facility] [place] [address], [place], [address], 10/21/2022 18:32:17 10/22/19 23 10/21/2022 UROST ONE 24 U magnesium 3.0 mg/dL Not Available [facility] [address] [place] [address], [place], [address], 10/21/2022 18:32:17 10/22/19 23 10/21/2022 UROST ONE 24 U phosphorus 26.0 mg/dL Not Available [facility] [address] [facility] [address], [place], [address], 10/21/2022 18:32:17 10/22/19 23 10/21/2022 UROST ONE 24 U potassium 30.40 mmol/ L Not Available [facility] [address] [place] [address] [address], [place], [address], 10/21/2022 18:32:17 10/22/19 23 10/21/2022 UROST ONE 24 U protein 4.25 mg/dL Not Available [facility] [address] [place] [address] [address], [place], [address], 10/21/2022 18:32:17 10/22/19 23 10/21/2022 UROST ONE 24 U sodium 59.0 mmol/ L Not Available [facility] [address] [place] [address] [address], [place], [address], 10/21/2022 18:32:17 10/22/19 23 10/21/2022 UROST ONE 24 U uric acid 28.0 mg/dL Not Available [facility] [address] [facility] [address], [place], [address], 10/21/2022 18:32:17 10/22/19 23 10/21/2022 UROST ONE 24 24 calcium 185.6 mg/24 _hour s 8.5-27 7.0 Not Available [facility] [address] [place] [address] [address], [place], [address], 10/21/2022 18:32:17 10/22/19 23 10/21/2022 UROST ONE 24 24 chloride 137.25 mmol/ 24_ho urs 28.20- 244.70 Not Available [facility] [address] [place] [address] [address], [place], [address], 10/21/2022 18:32:17 10/22/19 23 10/21/2022 UROST ONE 24 24 magnesium 67.73 mg/24 _hour s 43.00- 246.00 Not Available [facility] [address] [facility] [address], [place], [address], 10/21/2022 18:32:17 10/22/19 23 10/21/2022 UROST ONE 24 24 phosphorus 585.00 mg/24 _hour s 127.00 -1318. 00 Not Available [facility] [address] [place] [address] [address], [place], [address], 10/21/2022 18:32:17 10/22/19 23 10/21/2022 UROST ONE 24 24 potassium 68.40 mmol/ 24_ho urs 7.70-9 1.30 Not Available [facility] [address] [place] [address] [address], [place], [address], 10/21/2022 18:32:17 10/22/19 23 10/21/2022 UROST ONE 24 24 protein 95.63 mg/24 _hour s 40.00- 150.00 Not Available [facility] [address] [place] [address], [place], [address], 10/21/2022 18:32:17 10/22/19 23 10/21/2022 UROST ONE 24 24 sodium 132.75 mmol/ 24_ho urs 26.40- 243.80 Not Available [facility] [address] [place] [address] [address], [place], [address], 10/21/2022 18:32:17 10/22/19 23 10/21/2022 UROST ONE 24 24 uric acid 630.00 mg/24 _hour s 136.00 -763.0 0 Not Available [facility] [address] [place] [address] [address], [place], [address], 10/21/2022 18:32:17 10/22/19 23 10/21/2022 UROST ONE 24 24creatinine 1395.0 0 mg/24 hrs 384.00 -2189. 00 Not Available [facility] [address], [place], [address], 10/21/2022 18:32:17 10/22/1910/23/2022 CITRI C ACID (CITR ATE), URINE citric acid, urine 342 mg/L undefi douglas Not Available [facility] ([facility]) [address] [place], [address], 10/23/2022 16:10:08 10/22/19 23 10/23/2022 CITRI C ACID (CITR ATE), URINE citric acid, U, 24HR 770 mg/24 _HR 320-12 40 Not Available [facility] ([facility]) [address] [place], [address], 10/23/2022 16:10:08 10/22/19 23 10/23/2022 OXALA TE, QUANT , 24-HO UR URINE oxalates, urine 7 mg/L undefi douglas Not Available [facility] ([facility]) [address] [place], [address], 10/23/2022 22:06:45 10/22/1910/23/2022 OXALA TE, QUANT , 24-HO UR URINE oxalates, urine 24HR 16 mg/24 _HR 7-44 Not Available [facility] ([facility]) [address] [place], [address], 10/23/2022 22:06:45 10/03/1903/20/2022 CT, urogr am No observ ation record ed. Not Available 10/17/2022 15:47:20 10/21/1910/17/2022 US, retro perit oneum , compl ete No observ ation record ed. [facility] [address], [place], [address], 10/20/2022 18:06:49 Result Notes None recorded. Procedures Surgical History Date Name Laterality Status Provider Name and Address Organization Details Recorded Time 10/22/19 23 24 Hour Urine Part 1 completed RYAN Simpson - [facility] 10/21/2022 16:30:09 09/11/19 23 Diagnostic colonoscopy completed Not Available Health Note 10/13/2022 16:30:13 Imaging Results Imaging Date Name Status LastModified by Organiz ation Details LastModified Time 03/20/2022 CT, urogram completed Information n ot available 10/17/2022 15:47:20 10/17/2022 US, retroperitone um, complete completed [facility] [address], [place], [address], 10/20/2022 18:06:49 Procedure Notes None recorded. Medical Equipment None Reported. Allergies No known drug allergies Medications Name Sig Start Date Stop Date Status Note LastModified by Organization Details LastModified Time accu-chek kit guide active Not Available Not Available No t Available phenazopy ridine 200 mg tablet TAKE ONE TABLET BY MOUTH THREE TIMES DAILY NEEDED FOR PAIN 10/17 completed HN: Patient reports no longer taking Not Available Not Available Not Available Accu-Chek Softclix Lancets USE TO TEST BLOOD GLUCOSE LEVELS TWICE DAILY.* active Not Available Not Available No t Available ciproflox acin 500 mg tablet TAKE ONE TABLET BY MOUTH TWICE DAILY for 10 days 10/17 completed HN: Patient reports no longer taking Not Available Not Available Not Available lisinopri l 10 mg tablet TAKE ONE TABLET BY MOUTH ONE TIME DAILY* active Not Available Not Available No t Available metformin ER 500 mg tablet,ex tended release 24 hr TAKE TWO TABLETS BY MOUTH TWICE DAILY WITH MEALS* active Not Available Not Available No t Available GaviLyte- G 236 gram-22.7 4 gram-6.74 gram-5.86 gram oral solution Drink 2 liters the day before the procedur e and 2 liters 6 hours prior to procedur e. 10/17 completed HN: Patient reports no longer taking Not Available Not Available Not Available potassium citrate ER 15 mEq (1,620 mg) tablet,ex tended release TAKE ONE TABLET BY MOUTH TWICE DAILY* active Not Available Not Available No t Available Accu-Chek Guide test strips USE TO TEST 2 TIMES PER DAY 10/17 completed HN: Patient reports no longer taking Not Available Not Available Not Available Accu-Chek Guide Glucose Meter USE TO TEST 2 TIMES PER DAY active Not Available Not Available No t Available Vitals Date Recorded Body mass index (BMI) Body weight Body height Provider Name and Address Organization Details Last Updated DateTime 10/17/2022 30.2 kg/m2 576532.7677 80893 g 182.88 cm Not Available Health Note 10/17/2022 15:37:01 Social History Question Answer Notes LastModified by Organizat ion Details LastModified Time Tobacco Smoking Status Never Smoker Not Available Health Note 10/13/2022 16:30:13 What Is Your Level Of Alcohol Consumption? None [email or web address] Information not available 10/17/2022 What Is Your Level Of Caffeine Consumption? None [email or web address] Information not available 10/13/2022 How Much Tobacco Do You Chew? None [email or web address] Information not available 10/13/2022 Do You Or Have You Ever Used E-cigarettes Or Vape? Never Used Electronic Cigarettes [email or web address] Information not available 10/13/2022 What Was The Date Of Your Most Recent Tobacco Screening? 10/17/2022 [email or web address] Information not available 10/13/2022 What Is Your Relationship Status? Single [email or web address] Information not available 10/13/2022 Are You Sexually Active? No [email or web address] Information not available 10/13/2022 Do You Or Have You Ever Used Smokeless Tobacco? Never Used Smokeless Tobacco [email or web address] Information not available 10/13/2022 Do You Use Any Illicit Or Recreational Drugs? No [email or web address] Information not available 10/13/2022 How Many Days In The Past Year Have You Consumed 5 Or More Drinks? 0 [email or web address] Information no t available 10/13/2022 Sex: Male Functional Status None recorded. Mental Status None recorded. Family History Relationship Description Onset Age of this Age Resolved Age Notes Unspecified Relation Family history unknown Medical History Condition Response Sexually Transmitted Infection N Diabetes Y Bleeding Disorder N High Blood Pressure Y Kidney Stones Y Cancer N Lung Disease N Depression N High Cholesterol N GERD/Acid Reflux N Heart Disease N Immunizations Vaccine Type Date Status Provider Name and Address Organization Details Recorded Time SARS-COV-2 (COVID-19) vaccine, UNSPECIFIED 12/24/2021 completed Not Available [facility] 10/21/2022 16:28:42 influenza, unspecified formulation 12/24/2021 completed Not Available [facility] 10/21/2022 16:28:42 Influenza, MDCK, quadrivalent, PF 12/24/2021 completed Zach Meath null, [facility] 10/17/2022 15:31:58 Influenza, recombinant, quadrivalent, PF 12/19/2020 completed Zach Meath null, [facility] 10/17/2022 15:31:58 COVID-19, mRNA, LNP-S, PF, 30 mcg/0.3 mL dose 04/15/2020 completed Zach Meath null, [facility] 10/17/2022 15:31:58 COVID-19, mRNA, LNP-S, PF, 30 mcg/0.3 mL dose 05/06/2020 completed Zach Meath null, [facility] 10/17/2022 15:31:58 COVID-19, mRNA, LNP-S, PF, 30 mcg/0.3 mL dose 01/18/2021 completed Zach Meath null, [facility] 10/17/2022 15:31:58 COVID-19, mRNA, LNP-S, PF, 30 mcg/0.3 mL dose, duyen-sucrose 07/06/2021 completed Zach Meath null, [facility] 10/17/2022 15:31:58 COVID-19, mRNA, LNP-S, bivalent, PF, 30 mcg/0.3 mL dose 12/24/2021 completed [facility] null, [facility] 10/17/2022 15:31:58 Influenza, split virus, quadrivalent, PF 12/10/2017 completed Zach Meath null, [facility] 10/17/2022 15:31:58 Influenza, split virus, quadrivalent, PF 12/15/2019 completed [facility] Meath null, [facility] 10/17/2022 15:31:58 Influenza, split virus, quadrivalent, PF 12/22/2018 completed Zach Meath null, [facility] 10/17/2022 15:31:58 Past Encounters Encounter ID Performer Location Encounter Start Date Encounter Closed Date Diagnosis/Indication Diagnosis SNOMED-CT Code [id number] [facility] [address] [place] [address],[address] [place] [address] 10/17/2022 15:25:16 10/17/2022 16:06:15 Kidney stone [id number] Uric acid urolithiasis [id number] Anibal hematuria [id number] 5 [id number] Jareth Marie [facility] [address] [place] [address],[address] [address] 10/21/2022 16:27:07 10/22/2022 16:27:25 Kidney stone [id number] Health Concerns Section Related Observation LastModified by Organization Detai ls LastModified Time None Recorded Concern Status LastModified by Organization Details LastModified Time None Recorded Advance Directives Directive None Recorded Payers Encounter Date Sequence Insurance Name Policy Number Policy Blackburn Covered Member ID Blackburn Member ID Guarantor Name 10/20/2022 1 [facility] (MEDICAID REPLACEMENT - HMO) [facility]ep [facility] Deim [id number] Pardeep A Deim 10/17/2022 1 [facility] (MEDICAID REPLACEMENT - HMO) [id number] Pardeep A Deim [id number] Pardeep A Deim Notes Date Note Type Note Provider Name and Address Organization Details Recorded Time 10/17/2022 text/html HPI Notes: This is a 62 year old male who is referred by Dr. Boone for the evaluation and management of gross hematuria and nephrolithiasis. In March he had a bout of gross hematuria and irritative voiding symptoms. He subsequently passed several gravely stones including a 1 cm stone. Stone analysis: uric acid. He underwent a CT urogram on 03/20/2022 which showed numerous small stones within the bladder without any other worrisome findings. He was started on potassium citrate. He has not had any further hematuria or passage of stones since that time. Kale Cason MD [address] [place] [address],[facility] [address], [place], [address], [facility] 10/17/2022 15:56:04
[2023-08-12] MEDS: LACTATED RINGERS 1000 ML 1,000 ML 100 ML IV (06:20)
[2023-08-12] MEDS: SODIUM CHLORIDE 0.9 % (FLUSH) 10 ML SYRINGE IVF (06:31)
--- NOTE | 2023-08-12 06:59 | W.ANESCHARGE ---
Anesthesia Charges Start Date/Time Anesthesia Start Date: 08/12/23 Anesthesia Start Time: 07:29 Stop Date/Time Anesthesia Stop Date: 08/12/23 Anesthesia Stop Time: 09:56
[2023-08-12] MEDS: CEFAZOLIN 2 GM INJ IVP (07:58)
[2023-08-12] MEDS: BUPIVACAINE 0.5% 30 ML INJECTION (09:39)
--- NOTE | 2023-08-12 09:57 | W.ANESCHARGE ---
Anesthesia Charges Start Date/Time Anesthesia Start Date: 08/12/23 Anesthesia Start Time: 07:29 Stop Date/Time Anesthesia Stop Date: 08/12/23 Anesthesia Stop Time: 09:56
[2023-08-12] MEDS: LABETALOL HCL 5 MG/ML inj IVP ×3 (10:15→10:36)
[2023-08-12] MEDS: LACTATED RINGERS 1000 ML 1,000 ML 35 ML IV (10:19)
--- NOTE | 2023-08-12 10:53 | W.PM.H&PU ---
History & Physical Update History & Physical Update H&P Reviewed and patient assessed: No changes noted
--- NOTE | 2023-08-12 10:53 | PM.GSPRC ---
Operative Note Date of procedure: 08/12/23 Pre-op diagnosis: Chronic cholecystitis Post-op diagnosis: Same Type of Procedure: Laparoscopic cholecystectomy Indications: Patient is a 63-year-old male who presented to clinic with clinical history workup consistent with chronic cholecystitis. I had a detailed conversation with the patient regarding the diagnosis of chronic cholecystitis. We discussed the treatment options including observation with diet modification and laparoscopic cholecystectomy. We discussed the risks of surgery (including but not limited to) the risks of bleeding, infection, injury to other structures in the abdomen including bile duct injury, bile leak and conversion to an open operation. We discussed the possibility that the patient's pain not improve with surgery. We discussed the possibility of permanent post-operative diarrhea that may require medical management. Additionally, the conceivably of complications requiring additional surgery or further hospitalization were also discussed including the risks of NH, respiratory failure, stroke and blood clots. The patient voiced an understanding of our conversation, had the opportunity to ask questions, agreed to accept the risks of surgery and asked that we proceed with surgery. Procedure Description: After discussing the risks and benefits of the procedure, the patient signed informed consent.? The operative site was marked and the patient was brought to the operating room and placed on the operating table in supine position.? Care was taken to pad the patient's pressure points.?? The patient was then intubated by anesthesia.?? The operative site was then prepped and draped in the usual sterile fashion.? A time-out was then performed. Entrance to the abdomen was gained via a 5 mm Visiport in the left upper quadrant. The abdomen was insufflated and briefly surveyed for signs of injury. There was none. 11 mm umbilical port was placed as well as 2 working ports along the right costal margin. Patient was then placed in reverse Trendelenburg position with the right side up. The gallbladder was contracted and firm. The fundus was grasped and retracted cephalad. The infundibulum was grasped. A combination of hook cautery and blunt dissection was used to carefully dissect out the cystic duct and artery until they could clearly be seen entering the gallbladder without any intervening structures. This portion of the procedure was made difficult secondary to chronically inflamed tissues. The cystic node was identified with a small arterial branch. 2 clips were applied and the feeding artery transected. This allowed the note to be dissected away from the operative field. The gallbladder was dissected off the cystic plate to achieve the critical view. Once this was achieved the cystic duct and artery were each clipped with 2 clips proximally and 1 clip distally and transected with the scissors. The gallbladder was then taken off of the liver bed. During removal from the gallbladder fossa there was some spillage of stones and bile. The gallbladder was removed from the liver and removed from the abdomen using an Endo-Catch bag. All large stone were placed within the Endo-Catch bag for removal. The gallbladder bed was surveyed for hemostasis. A small amount of bile which had spilled was suctioned from the abdomen. The umbilical port fascia was closed with 0 Vicryl via the Kar-Caleb. All other ports removed under direct visualization. The skin was closed with absorbable subcuticular suture. Instrument sponge and needle counts were correct at the end of the case. The patient was then woken and transferred to the PACU in stable condition. Sterile dressings were then applied. Findings: Chronically inflamed and contracted gallbladder, cholelithiasis. Anesthesia: GETA Surgeon: Francheska Barry MD Estimated blood loss (mL): 15 Specimen: Gallbladder Condition: stable Disposition: PACU
== END 2023-08-12 12:15 | disposition home or self-care (01) ==
PROVIDERS: PCP Family Medicine; Visit Provider Surgery
PROC: 0FT44ZZ Resection of Gallbladder, Percutaneous Endoscopic Approach (ICD-10-PCS; CPT 47562; principal; 2023-08-12 07:30)
DX: K80.10 Calculus of gallbladder with chronic cholecystitis without obstruction (principal); E11.9 Type 2 diabetes mellitus without complications; I10 Essential (primary) hypertension; E66.9 Obesity, unspecified; Z68.33 Body mass index [BMI] 33.0-33.9, adult
CPT/HCPCS: 47562; 00790; 82962; 88304; J0665; J0690; J1100; J1170; J1885; J2405; J2704; J2710; J3010; J7120

== ENCOUNTER 2023-08-13 07:24 | Emergency (ER) | payer BC, SELFPAY ==
[2023-08-13 07:33] VITALS: BP 166/93; PULSE 85; RESP 20; TEMP 36.6; O2SAT 98; BMI 32.1
--- NOTE | 2023-08-13 07:51 | ED.GENADULT ---
HPI - General Adult General Chief complaint: Urogenital Problems, Male Stated complaint: unable to urinate post surgery Time Seen by Provider: 08/13/23 07:36 History of Present Illness HPI narrative: Patient is a 63-year-old male had his gallbladder removed laparoscopically yesterday with :, the patient presents today unable to urinate he has got some dribbling urination, he does not have fever chills, is abdomen feels painful distance suprapubic area. He feels a little bit full in that area and tender he has got an urgency to void but he can not void more than dribbling as mention, no hematuria. His surgery appeared from medical records to go well. He had chronic cholecystitis. Patient denies vomiting, reports he has had a bowel movement since Friday with slight couple days ago knee just had surgery yesterday He is ambulatory without difficulty has the urge to void Related Data Home Medications ?Medication ?Instructions ?Recorded ?Confirmed aspirin 81 mg tablet,delayed 81 mg PO DAILY 08/07/23 08/12/23 release (Ecotrin Low Strength) lisinopril 10 mg tablet 10 mg PO DAILY 08/07/23 08/12/23 metformin 500 mg tablet,extended 1,000 mg PO BID 08/07/23 08/12/23 release 24 hr potassium citrate 15 mEq (1,620 15 meq PO DAILY 08/07/23 08/12/23 mg) tablet,extended release Previous Rx's ?Medication ?Instructions ?Recorded ciprofloxacin HCl 500 mg tablet 500 mg PO BID 10 days #20 tabs 03/06/22 (Cipro) phenazopyridine 200 mg tablet 200 mg PO TID PRN pain #10 tabs 03/06/22 (Pyridium) hydrocodone 5 mg-acetaminophen 325 1 tab PO Q6H PRN pain #10 tabs 08/12/23 mg tablet sennosides 8.6 mg capsule (senna) 8.6 mg PO DAILY PRN constipation 08/12/23 #90 caps Allergies Allergy/AdvReac Type Severity Reaction Status Date / Time meperidine [From Demerol] Allergy Unknown Verified 08/12/23 06:24 Review of Systems Status of ROS: Reports: 6 or more systems reviewed and unremarkable except as noted in History and below PFSH PFS Medical History Hematuria ?R31.9 - Hematuria, unspecified (ICD-10) Uric acid kidney stone ?N20.0 - Calculus of kidney (ICD-10) Type 2 diabetes mellitus without complication, with long-term current use of insulin ?E11.9 - Type 2 diabetes mellitus without complications (ICD-10) ?Z79.4 - long term care pharmacist (current) use of insulin (ICD-10) Hypertension ?I10 - Essential (primary) hypertension (ICD-10) Surgical History Hx of anterior cruciate ligament tear reconstruction ?Z98.890 - Other specified postprocedural states (ICD-10) Social History Smoking Status: Never smoker Do you use any of these nicotine containing products: None How often do you have a drink containing alcohol: never AUDIT-C Alcohol total score: 0 Non-prescribed substance use: denies use Caffeine: Yes Exam Narrative: Exam Narrative: Objective: Patient's vital signs look within normal limits except his blood pressure is little bill elevated He is alert or x3, pacing and in mild distress and is feeling of bladder fullness HEENT unremarkable pulse regular Abdomen obese nontender surgical incision sites look well, no cellulitis Mild suprapubic tenderness to palpation Extremities are no edema neurologic nonfocal Const: Vital Signs, click to edit/add: Vital Signs - 24 hr 08/13/23 07:33 Temperature 98 F Pulse Rate [Pulse Oximeter] 85 Respiratory Rate 20 Blood Pressure [Ri ght Upper Arm] 166/93 H Pulse Oximetry 98 Oxygen Delivery Me thod Room Air Course Vital Signs Vital signs: Initial Vital Signs Temperature 98 F 08/13/23 07:33 Temperature Source Temporal Artery Scan 08/13/23 07:33 Pulse Rate 85 08/13/23 07:33 Respiratory Rate 20 08/13/23 07:33 Blood Pressure 166/93 H 08/13/23 07:33 Blood Pressure Mean 117 H 08/13/23 07:33 Blood Pressure Position Supine 08/13/23 07:33 Pulse Oximetry 98 08/13/23 07:33 Oxygen Delivery Method Room Air 08/13/23 07:33 Vital Signs Temperature 98 F 08/13/23 07:33 Pulse Rate 85 08/13/23 07:33 Respiratory Rate 20 08/13/23 07:33 Blood Pressure 166/93 H 08/13/23 07:33 Pulse Oximetry 98 08/13/23 07:33 Oxygen Delivery Method Room Air 08/13/23 07:33 Temperature 98 F 08/13/23 07:33 Pulse Rate 85 08/13/23 07:33 Respiratory Rate 20 08/13/23 07:33 Blood Pressure 166/93 H 08/13/23 07:33 Pulse Oximetry 98 08/13/23 07:33 Oxygen Delivery Method Room Air 08/13/23 07:33 Medications Administered Medications: Discontinued Medications Generic Name Dose Route Start Last Admin Trade Name Adela PRN Reason Stop Dose Admin Lidocaine HCl 6 ml 08/13/23 07:50 08/13/23 08:25 Lidocaine Hcl 2 % Jelly (Top) Sterile TOPICAL 08/13/23 07:51 6 ml ONCE ONE Administration Medical Decision Making MDM Narrative Medical decision making narrative: 63-year-old male 1 day postop laparoscopic cholecystectomy with urinary retention. This may be related to the anesthetic. He may have mild prostatism at baseline. Will put a catheter in and leave it in to straight drainage. Will get a urinalysis, will use uroject, and will also get a bladder scan. Disposition pending his clinical response after his catheterization. Addendum 8:51 a.m. the patient had a catheter placed he had 500 mL urine on his bladder scan, he feels better. He will be discharged home with a catheter in place, Teresa follow-up with your regular doctor next 2-3 days for removal or reassessment, return to ED sooner problems or concerns. Follow-up with your surgeon as planned Lab Data Labs: Lab Results 08/13/23 Range/Units 08:32 Urine Color Yellow (Yellow) Urine Appearance Clear (Clear) Urine pH 6.0 (5.0-8.5) Ur Specific [place] 1.010 (1.000-1.030) Urine Protein Negative (Negative) Urine Glucose (UA) Negative (Negative) Urine Ketones Negative (Negative) Urine Blood 3+ A (Negative) Urine Nitrite Negative (Negative) Urine Bilirubin Negative (Negative) Urine Urobilinogen 0.2 (0.2-1.0) Ur Leukocyte Esterase Negative (Negative) Urine RBC 10-25 A (0-2) Urine WBC 0-2 (0-5) Ur Squamous Epith Cells Few (None-Few) Urine Bacteria None (None) Urine Mucus Few A (None) Discharge Plan Discharge Clinical Impression: Postoperative urinary retention, Acute urinary retention Patient Disposition: Home w/ Parent or Adult Condition: Improved Instructions: [place] Catheter Placement and Care (ED), How to Change a Catheter Drainage Bag (DC) Additional Instructions: Follow-up with your primary care doctor next 2-3 days to get your catheter removed, and reassess. Return sooner to ER problems or concerns. Activity Level: Light activity Discharge Diet: Diabetic Prescriptions: No Action aspirin [Ecotrin Low Strength] 81 mg tablet,delayed release (DR/EC) 81 mg PO DAILY lisinopril 10 mg tablet 10 mg PO DAILY metformin 500 mg tablet extended release 24 hr 1,000 mg PO BID potassium citrate 15 mEq tablet extended release 15 meq PO DAILY hydrocodone-acetaminophen 5-325 mg tablet 1 tab PO Q6H PRN (Reason: pain) Qty: 10 0RF senna 8.6 mg capsule 8.6 mg PO DAILY PRN (Reason: constipation) Qty: 90 0RF ciprofloxacin HCl [Cipro] 500 mg tablet 500 mg PO BID 10 Days Qty: 20 0RF phenazopyridine [Pyridium] 200 mg tablet 200 mg PO TID PRN (Reason: pain) Qty: 10 0RF Follow Up/Referrals: Jhonatan Boone MD [Primary Care Provider] - Stand Alone Forms: [employer] Info Instructions
--- OUTSIDE RECORDS SUMMARY | 2023-08-13 08:09 | XMS_ITS | Clinical Summary ---
Author Organization [facility] Address [place], [place] [address] Care Team Providers Care Furniture And Bedding Inspector Name Role Phone Marlene Moore RN Unavailable [phone] Jhonatan Boone MD Primary Care Provider Allergies [...] Encounters Date Type Department Care Team Description 08/12/2023 Lab Requisition [facility] [phone] Unknown, Doctor 08/06/2023 Refill [facility] [address] [place] [address] Jhonatan Boone MD Refill Request (Accu-chek Guide Test Strips) 07/31/2023 11:50 AM CDT Preop Visit [facility] [address] [place] [address] Jhonatan Boone MD Diabetes (6 month follow up); Preoperative Exam (DOS: 08/12/2023, laparoscopic cholecystectomy, Dr. Barry, [facility]) 07/30/2023 Travel 06/11/2023 2:00 PM CDT Office Visit [facility] [address] [address] Francheska Barry MD Consult (Gallbladder referred by Dr. Boone) 06/10/2023 Travel 06/03/2023 Travel 05/31/2023 Telephone [facility] [address] [place] [address] Jhonatan Boone MD Follow Up 05/31/2023 Orders Only [facility] [address] [place] [address] Jhonatan Boone MD <No scans attached> 05/30/2023 10:30 AM CDT Ancillary Procedure [facility] [address] [place] [address] 05/30/2023 Travel 05/14/2023 10:55 AM CDT Office Visit [facility] [address] [place] [address] Jhonatan Boone MD Pain (Pain started in mid-right back, radiated into abdomen, started 05/08/2023, vomiting, diarrhea); Lump (Inside of right arm, by elbow, noticed about 3 weeks ago) 05/14/2023 Travel from Last 3 Months Immunizations Name Administration Dates Next Due COVID-19 Vaccine Spikevax (M oderna 50mcg/0.5mL) 12YO+ [id number] Formula PF 01/02/2023 COVID-19 vaccine (Pfizer-Bio NTech [...] History Relation Name Comments Other Maternal Grandfather Alzheir kim's Anesthesia Problem No Family History Relation [...] Care Team (Late st Contact Info) Description 08/27/2023 1:15 PM CDT Office Visit [facility] [address] [place] [address] Francheska Barry MD [address] [place] [address] 01/23/2024 10:30 AM L[employer]SCAPE [employer]ARDWORK LABORER Office Visit [facility] [address] [place] [address] Jhonatan Boone MD [address] [place] [address] Health Maintenance Due Date Last Done Comments Influenza for age 50-64 11/02/2023 11/20/19, 12/24/2021, 12/19/2020, Additional history exists BMI (ht and wt on same day) for age 18+ 07/30/2024 07/31/2023, 01/16/2023, 07/16/2022, Additional history exists Depression screening for age 12+ 07/30/2024 07/31/19 24, 07/16/2022 Lipids for age 45-75 01/17/2028 01/16/2023, [...] MEASURED LDL Add On 01/16/2023 9:10 AM [employer]WORK LABORER Type 2 diabetes mellitus without complication, without long-term current use of insulin (HC) COLONOSCOPY SCREENING Routine 09/10/2022 10:20 AM CDT Screening for colon cancer LC HIV-1/O/2, 4TH GENERATION Routine 03/12/2022 11:00 AM [employer] LAB[employer]ER Screening for HIV (human immunodeficiency virus) LC HCV ANTIBODY RFX TO QUANT PCR Routine 03/12/2022 11:00 AM [employer]WORK LABORER Need for hepatitis C screening test from Last 3 Months or Most Recently Relevant to Health Maintenance Results * HEMOGLOBIN (07/31/2023 11:33 AM CDT) HEMOGLOBIN 15.3 13.5 - 17.5 g/dL 07/31/2023 11:43 AM CDT [facility] MCV 90 80 - 100 fL 07/31/2023 11:43 AM CDT [facility] Blood BLOOD SPECIMEN / Unknown Venipuncture / Unknown 07/31/2023 11:33 AM CDT 07/31/2023 11:34 AM CDT Jhonatan Boone MD HEMATOLOGY [facility] [address] [place] [address], * HEMOGLOBIN A1C MONITORING (POCT) (07/31/2023 11:33 AM CDT) HEMOGLOBIN A1C MONITORING (POCT) 5.9 <=6.4 % 07/31/2023 11:44 AM CDT [facility] Blood BLOOD SPECIMEN / Unknown Venipuncture / Unknown 07/31/2023 11:33 AM CDT 07/31/2023 11:34 AM CDT Narrative [facility] - 07/31/2023 11:44 AM CDT [...] Anemias, Splenectomy ? Jhonatan Boone MD CHEMISTRY [facility] [address] [place] [address], * (ABNORMAL) BASIC METABOLIC PANEL (07/31/2023 11:33 AM CDT) Only the most recent of2 resultswithin the time period is included. Pathologist [facility] [place] SODIUM 139 136 - 145 mmol/L 08/01/2023 1:10 AM T [facility] POTASSIUM 4.6 3.5 - 5.1 mmol/L 08/01/2023 1:10 AM CDT [facility] CHLORIDE 100 98 - 107 mmol/L 08/01/2023 1:10 AM [facility] CO2,TOTAL 28 22 - 29 mmol/L 08/01/2023 1:10 AM T [facility] ANION GAP 11 5 - 18 08/01/2023 1:10 AM T [facility] GLUCOSE 109(H) 70 - 99 mg/dL 08/01/2023 1:10 AM T [facility] CALCIUM 9.9 8.8 - 10.2 mg/dL 08/01/2023 1:10 AM [facility] BUN 13 8 - 23 mg/dL 08/01/2023 1:10 AM [facility] CREATININE 0.81 0.70 - 1.20 mg/dL 08/01/2023 1:10 AM [facility] BUN/CREAT RATIO 16 10 - 20 1:10 AM T [facility] eGFR >90 >90 mL/min/1.7 3m2 08/01/2023 1:10 AM [facility] Comment:As of 2021, eG [...] Jhonatan Boone MD CHEMISTRY Performing Organization Address [facility] de Phone Number [facility] [address] [place] [address], * PSA TOTAL SCREEN (07/31/2023 11:33 AM CDT) PSA TOTAL (SCREEN) 2.88 <4.00 ng/mL 08/01/2023 1:10 AM CDT [facility] Blood BLOOD SPECIMEN / Unknown Venipuncture / Unknown 07/31/2023 11:33 AM CDT 07/31/2023 11:34 AM CDT Narrative [facility] - 08/01/2023 1:10 AM CDT The [...] Jhonatan Boone MD LABORATORY Performing Organization Address [facility] de Phone Number [facility] [address] [place] [address], * PATH TISSUE EXAM (06/11/2023 3:00 PM CDT) Case Report Pathology Report ?Case: [id number] ? Authorizing Provider: ??Francheska Barry MD ??Collected: ? 06/11/2023 1500 ? Ordering Location: ? [facility] ?? Received: ?06/11/2023 1539 ? Clinic ? Pathologist: ? Sarika Choi MD ? Specimen: ?Right Thigh, right posterior thigh skin tag ? 06/16/2023 10:58 AM [facility] Final Diagnosis SKIN, RIGHT POSTERIOR THIGH, EXCISION: 1. Nevus lipomatosus superficialis 2. Negative for malignancy 06/16/2023 10:58 AM [facility] Clinical Information Skin tag 06/16/2023 10:58 AM [facility] relocality LABORATORY-C ENTRAL LABORATORY Gross Description A) Received in formalin, labeled with the patient's name and right posterior skin tag, is a 4.3 x 3.5 x 2.6 cm wrinkled light ortiz soft flocculent skin nodule, inked blue at the base and sectioned revealing a fibrofatty core. ??The entire specimen is submitted in 8 cassettes. TRB 06/12/2023 06/16/2023 10:58 AM CDT [facility] Microscopic Description The final diagnosis is based on microscopic examination of appropriate sections of all specimens. The epidermis is unremarkable. Within the upper dermis there are lobules of mature adipocytes located preferentially around small blood vessels. The presence of ??blue ink is confirmed on tissue sections. 06/16/2023 10:58 AM CDT [facility] Additional Information Interpreted at [facility] - [address] [facility] [address], [place] [address] 06/16/2023 10:58 AM CDT [facility] Other (Right Thigh) Non-Blood / Unknown 06/11/2023 3:00 PM CDT 06/11/2023 3:39 PM CDT Francheska Barry MD PATHOLOGY/CYTOLO GY Performing Organization Address City/State/[facility] Co de Phone Number [facility] [address] [place] [address], [place] * US ABDOMEN LIMITED RUQ (05/30/2023 [...] 11.0 thou/cu mm 05/14/2023 12:01 PM CDT [facility] RED BLOOD COUNT 4.86 4.30 - 5.90 mil/cu mm 05/14/2023 12:01 PM CDT [facility] HEMOGLOBIN 15.0 13.5 - 17.5 g/dL 05/14/2023 12:01 PM CDT [facility] HEMATOCRIT 44.2 37.0 - 53.0 % 05/14/2023 12:01 PM CDT [facility] MCV 91 80 - 100 fL 05/14/2023 12:01 PM CDT [facility] MCH 30.9 26.0 - 34.0 pg 05/14/2023 12:01 PM CDT [facility] MCHC 33.9 32.0 - 36.0 g/dL 05/14/2023 12:01 PM CDT [facility] RDW 12.6 11.5 - 15.5 % 05/14/2023 12:01 PM CDT [facility] PLATELET COUNT 459(H) 140 - 440 thou/cu mm 05/14/2023 12:01 PM CDT [facility] MPV 9.0 6.5 - 11.0 fL 05/14/2023 12:01 PM CDT [facility] % NEUT 68.1 % 05/14/2023 12:01 PM CDT [facility] % LYMPH 22.3 % 05/14/2023 12:01 PM CDT [facility] % MONO 7.7 % 05/14/2023 12:01 PM CDT [facility] % EOS 1.6 % 05/14/2023 12:01 PM CDT [facility] % BASO 0.3 % 05/14/2023 12:01 PM CDT [facility] ABSOLUTE NEUTROPHILS 8.1(H) 1.7 - 7.0 thou/cu mm 05/14/2023 12:01 PM CDT [facility] ABSOLUTE LYMPHOCYTES 2.7 0.9 - 2.9 thou/cu mm 05/14/2023 12:01 PM CDT [facility] ABSOLUTE MONOCYTES 0.9(H) <0.9 thou/cu mm 05/14/2023 12:01 PM CDT [facility] ABSOLUTE EOSINOPHILS 0.2 <0.5 thou/cu mm 05/14/2023 12:01 PM CDT [facility] ABSOLUTE BASOPHILS 0.0 <0.3 thou/cu mm 05/14/2023 12:01 PM CDT [facility] Blood BLOOD SPECIMEN / Unknown Venipuncture / Unknown 05/14/2023 11:41 AM CDT 05/14/2023 11:42 AM CDT Jhonatan Boone MD HEMATOLOGY [facility] [address] [place] [address], * HEPATIC FUNCTION PANEL (05/14/2023 11:41 AM CDT) ALBUMIN 4.5 4.0 - 4.9 g/dL 05/14/2023 10:09 PM CDT [facility] PROTEIN,TOTAL 7.1 6.0 - 8.0 g/dL 05/14/2023 10:09 PM CDT [facility] BILIRUBIN,TOTAL 0.5 0.0 - 1.2 mg/dL 05/14/2023 10:09 PM CDT [facility] BILIRUBIN,DIRECT <0.2 0.0 - 0.3 mg/dL 05/14/2023 10:09 PM CDT [facility] BILIRUBIN,INDIRE CT 05/14/2023 10:09 PM CDT [facility] Comment:Unable to calculate, Direct Bili <0.2 ALK PHOSPHATASE 78 40 - 129 IU/L 05/14/2023 10:09 PM CDT [facility] ALT (SGPT) 20 10 - 50 IU/L 05/14/2023 10:09 PM CDT [facility] AST (SGOT) 18 10 - 50 IU/L 05/14/2023 10:09 PM CDT [facility] Blood BLOOD SPECIMEN / Unknown Venipuncture / Unknown 05/14/2023 11:41 AM CDT 05/14/2023 11:42 AM CDT Jhonatan Boone MD CHEMISTRY [facility] [address] [place] [id number], [place] * (ABNORMAL) LIPID PANEL W REFLEX MEASURED LDL (01/16/2023 9:10 AM [employer]WORK LABORER) CHOLESTEROL,TOTAL 195 100 - 199 mg/dL 01/16/2023 5:15 PM [employer]ARDWORK LABORER [facility] Comment: Cholesterol, Total Reference Ranges Desirable <200 mg/dL Borderline 200-239 mg/dL High >=240 mg/dL TRIGLYCERIDES 161(H) <150 mg/dL 01/16/2023 5:15 PM [employer]WORK LABORER [facility] HDL CHOLESTEROL 46 >40 mg/dL 5:15 PM [employer]WORK LABORER [facility] NON-HDL CHOLESTEROL 149(H) <145 mg/dl 01/16/2023 5:15 PM L[employer]WORK LABORER [facility] CHOL/HDL RATIO 4.24 <4.50 01/16/2023 5:15 PM L[employer]WORK LABORER [facility] LDL CHOLESTEROL 117 <=130 mg/dL 01/16/2023 5:15 PM [employer]WORK LABORER [facility] VLDL CHOLESTEROL 32(H) <=30 mg/dL 01/16/2023 5:15 PM [employer]WORK LABORER [facility] PROVIDER ORDERED STATUS RANDOM 01/16/2023 5:15 PM [employer]WORK LABORER [facility] Blood BLOOD SPECIMEN / Unknown Venipuncture / Unknown 01/16/2023 9:10 AM [employer]WORK LABORER 01/16/2023 9:10 AM [employer]WORK LABORER Jhonatan Boone MD CHEMISTRY [facility] [address] [place] [id number], [place] * COLONOSCOPY (09/10/2022 10:28 AM CDT) [...] adequate candidate for conscious sedation. The endoscope [id number] was passed through the anus andadvanced to [...] 10:28 AM Procedure Code(s): --- Professional --- 52469, Colonoscopy, flexible; with removalof tumor(s), polyp(s), or other lesion(s) bysnare technique Diagnosis Code(s): --- Professional --- Z12.11, Encounter for screening formalignant neoplasm of colon D12.3, Benign neoplasm of transverse colon (hepatic flexure or splenic flexure) K64.8, Other hemorrhoids CPT copyright 2021 [employer]. All rights reserved. The codes documented in this report are preliminary and upon monogram operator reviewmay be revised to meet current compliance requirements. Scope In: 11:14:59 AM Scope Withdrawal Time 0 hours 8 minutes 6 seconds Scope Out: 11:26:39 AM Jimbo Horton MD PROCEDURE ORD * LC HCV ANTIBODY RFX TO QUANT PCR (03/12/2022 11:00 AM [employer]WORK LABORER) HCV Ab <0.1 0.0 - 0.9 s/co ratio 03/15/2022 8:10 AM [employer]SCAPE AND YARDWORK LABORER [facility] ([facility]) Blood BLOOD SPECIMEN / Unknown Venipuncture / Unknown 03/12/2022 11:00 AM [employer]APE AND YARDWORK LABORER 03/12/2022 11:42 AM [employer]SCAPE AND YARDWORK LABORER Narrative [facility] ([facility] - 03/15/2022 8:10 AM L[employer]SCAPE AND YARDWORK LABORER Performed at: ??[address] ??[id number] Morning Caregiver: Seven Soto MD, Phone: ??[phone] Jhonatan Boone MD LABORATORY Performing Organization Address [facility] Co de Phone Number [facility] ([facility]) [address] [place] [address] * HIV-1/O/2, 4TH GENERATION (03/12/2022 11:00 AM L[employer]SCAPE AND YARDWORK LABORER) [facility] HIV Scr 4th Gen Non Reactive Non Reactive 03/15/2022 3:07 AM [facility] ([facility]) Comment: HIV Negative HIV-1/HIV-2 antibodies and HIV-1 p24 antigen were NOT detected. There is no laboratory evidence of HIV infection. Blood BLOOD SPECIMEN / Unknown Venipuncture / Unknown 03/12/2022 11:00 AM [employer]APE AND YARDWORK LABORER 03/12/2022 11:41 AM L[employer]SCAPE AND YARDWORK LABORER Narrative [facility] ([facility]) - 03/15/2022 3:07 AM L[employer]SCAPE AND YARDWORK LABORER Performed at: ??[address] ??[id number] Morning Caregiver: Seven Soto MD, Phone: ??[phone] Jhonatan Boone MD LABORATORY Performing Organization Address [facility]/ZIP Co de Phone Number [facility] ([facility]) [address] [place] [address] from Last 3 Months or Most Recently Relevant to Health Maintenance Care Teams Furniture And Bedding Inspector Relationship Specialty Start Date End Date Jhonatan Boone MD [address] [place] [address] PCP - General Family Practice 07/16/22 Marlene Moore, RN [address] [place] [address] Grab Jack Man 04/08/22
--- OUTSIDE RECORDS SUMMARY | 2023-08-13 08:10 | XMS_ITS | Data Portability ---
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 Not available 10/17/2022 15:53:43 Plan of Treatment Reminders Order Date Submit Date Provider Last Modified By Organization Details Last Modified Time Details Appointments None recorded. Lab stone risk analysis panel 2022 023 [facility], [address], [address], [place], [address], 3 18:32:18 Referral None recorded. Procedures None recorded. Surgeries None recorded. Imaging US, kidney 2022 023 [facility], [address], [address], [place], [address], 3 08:47:37 Medication Orders None recorded. Patient TargetsNo targets recorded. Patient Instructions Encounter Date Encounter Id Patient Instructions Last Modified By Organization Details Last Modified Time 10/17/2022 [id number] Nephrolithiasis: He has passed multiple stones which [...] volume 2.250 L 0.510- 2.560 Not Available [facility] [address], [place], [address], 10/21/2022 18:32:17 10/22/19 23 10/21/2022 UROST ONE 24 pH 6.10 5.60-7 .10 Not Available [facility] [address], [place], [address], 10/21/2022 18:32:17 10/22/19 23 10/21/2022 UROST ONE 24 U chloride 61.0 mmol/ L Not Available [facility] [address], [place], [address], 10/21/2022 18:32:17 10/22/19 23 10/21/2022 UROST ONE 24 U creatinine 62.0 mg/dL Not Available [facility] [address], [place], [address], 10/21/2022 18:32:17 10/22/19 23 10/21/2022 UROST ONE 24 U magnesium 3.0 mg/dL Not Available [facility] [address], [place], [address], 10/21/2022 18:32:17 10/22/19 23 10/21/2022 UROST ONE 24 U phosphorus 26.0 mg/dL Not Available [facility] [address] [facility] [address], [place], [address], 10/21/2022 18:32:17 10/22/19 23 10/21/2022 UROST ONE 24 U potassium 30.40 mmol/ L Not Available [facility] [address] [place] [address] [address], [place], [address], 10/21/2022 18:32:17 10/22/19 23 10/21/2022 UROST ONE 24 U protein 4.25 mg/dL Not Available [facility] [address] [place] [address] [address], [place], [address], 10/21/2022 18:32:17 10/22/19 23 10/21/2022 UROST ONE 24 U sodium 59.0 mmol/ L Not Available [facility] [address] [place] [address] [address], [place], [address], 10/21/2022 18:32:17 10/22/19 23 10/21/2022 UROST ONE 24 U uric acid 28.0 mg/dL Not Available [facility] [address] [facility] [address], [place], [address], 10/21/2022 18:32:17 10/22/19 23 10/21/2022 UROST ONE 24 24 calcium 185.6 mg/24 _hour s 8.5-27 7.0 Not Available [facility] [address] [place] [address] [address], [place], [address], 10/21/2022 18:32:17 10/22/19 23 10/21/2022 UROST ONE 24 24 chloride 137.25 mmol/ 24_ho urs 28.20- 244.70 Not Available [facility] [address] [place] [address] [address], [place], [address], 10/21/2022 18:32:17 10/22/19 23 10/21/2022 UROST ONE 24 24 magnesium 67.73 mg/24 _hour s 43.00- 246.00 Not Available [facility] [address] [facility] [address], [place], [address], 10/21/2022 18:32:17 10/22/19 23 10/21/2022 UROST ONE 24 24 phosphorus 585.00 mg/24 _hour s 127.00 -1318. 00 Not Available [facility] [address] [place] [address] [address], [place], [address], 10/21/2022 18:32:17 10/22/19 23 10/21/2022 UROST ONE 24 24 potassium 68.40 mmol/ 24_ho urs 7.70-9 1.30 Not Available [facility] [address] [place] [address] [address], [place], [address], 10/21/2022 18:32:17 10/22/19 23 10/21/2022 UROST ONE 24 24 protein 95.63 mg/24 _hour s 40.00- 150.00 Not Available [facility] [address] [place] [address], [place], [address], 10/21/2022 18:32:17 10/22/19 23 10/21/2022 UROST ONE 24 24 sodium 132.75 mmol/ 24_ho urs 26.40- 243.80 Not Available [facility] [address] [place] [address] [address], [place], [address], 10/21/2022 18:32:17 10/22/19 23 10/21/2022 UROST ONE 24 24 uric acid 630.00 mg/24 _hour s 136.00 -763.0 0 Not Available [facility] [address] [place] [address] [address], [place], [address], 10/21/2022 18:32:17 10/22/19 23 10/21/2022 UROST ONE 24 24creatinine 1395.0 0 mg/24 hrs 384.00 -2189. 00 Not Available [facility] [address], [place], [address], 10/21/2022 18:32:17 10/22/1910/23/2022 CITRI C ACID (CITR ATE), URINE citric acid, urine 342 mg/L undefi douglas Not Available [facility] ([facility]) [address] [place], [address], 10/23/2022 16:10:08 10/22/19 23 10/23/2022 CITRI C ACID (CITR ATE), URINE citric acid, U, 24HR 770 mg/24 _HR 320-12 40 Not Available [facility] ([facility]) [address] [place], [address], 10/23/2022 16:10:08 10/22/19 23 10/23/2022 OXALA TE, QUANT , 24-HO UR URINE oxalates, urine 7 mg/L undefi douglas Not Available [facility] ([facility]) [address] [place], [address], 10/23/2022 22:06:45 10/22/1910/23/2022 OXALA TE, QUANT , 24-HO UR URINE oxalates, urine 24HR 16 mg/24 _HR 7-44 Not Available [facility] ([facility]) [address] [place], [address], 10/23/2022 22:06:45 10/03/1903/20/2022 CT, urogr am No observ ation record ed. Not Available 10/17/2022 15:47:20 10/21/1910/17/2022 US, retro perit oneum , compl ete No observ ation record ed. [facility] [address], [place], [address], 10/20/2022 18:06:49 Result Notes None recorded. Procedures Surgical History Date Name Laterality Status Provider Name and Address Organization Details Recorded Time 10/22/19 23 24 Hour Urine Part 1 completed RYAN Simpson - [facility] 10/21/2022 16:30:09 09/11/19 23 Diagnostic colonoscopy completed Not Available Health Note 10/13/2022 16:30:13 Imaging Results Imaging Date Name Status LastModified by Organiz ation Details LastModified Time 03/20/2022 CT, urogram completed Information n ot available 10/17/2022 15:47:20 10/17/2022 US, retroperitone um, complete completed [facility] [address], [place], [address], 10/20/2022 18:06:49 Procedure Notes None recorded. Medical [...] Details Last Updated DateTime 10/17/2022 30.2 kg/m2 443902.6430 23046 g 182.88 cm Not Available Health Note [...] Pressure Y Kidney Stones Y Cancer N Depression N Lung Disease N High Cholesterol N GERD/Acid Reflux N Heart Disease N Immunizations Vaccine Type Date Status Provider Name and Address Organization Details Recorded Time SARS-COV-2 (COVID-19) vaccine, UNSPECIFIED 12/24/2021 completed Not Available [facility] 10/21/2022 16:28:42 influenza, unspecified formulation 12/24/2021 completed Not Available [facility] 16:28:42 Influenza, MDCK, quadrivalent, PF 12/24/2021 completed Zach Meath null, [facility] 10/17/2022 15:31:58 Influenza, recombinant, quadrivalent, PF 12/19/2020 completed Zach Meath null, [facility] 10/17/2022 15:31:58 COVID-19, mRNA, LNP-S, PF, 30 mcg/0.3 mL dose 04/15/2020 completed Zach Meath null, [facility] 10/17/2022 15:31:58 COVID-19, mRNA, LNP-S, PF, 30 mcg/0.3 mL dose 05/06/2020 completed Zach Meath null, [facility] 10/17/2022 15:31:58 COVID-19, mRNA, LNP-S, PF, 30 mcg/0.3 mL dose 01/18/2021 completed Zach Meath null, [facility] 10/17/2022 15:31:58 COVID-19, mRNA, LNP-S, PF, 30 mcg/0.3 mL dose, duyen-sucrose 07/06/2021 completed Zach Meath null, [facility] 10/17/2022 15:31:58 COVID-19, mRNA, LNP-S, bivalent, PF, 30 mcg/0.3 mL dose 12/24/2021 completed [facility], [facility] 10/17/2022 15:31:58 Influenza, split virus, quadrivalent, PF 12/10/2017 completed Zach Meath null, [facility] 10/17/2022 15:31:58 Influenza, split virus, quadrivalent, PF 12/15/2019 completed [facility] null, [facility] 10/17/2022 15:31:58 Influenza, split virus, quadrivalent, PF 12/22/2018 completed Zach Meath null, [facility] 10/17/2022 15:31:58 Past Encounters Encounter ID Performer Location Encounter Start Date Encounter Closed Date Diagnosis/Indication Diagnosis SNOMED-CT Code [id number] Kale Cason MD [facility] [place] [address] [place] [address],[address] [place] [address] 10/17/2022 15:25:16 10/17/2022 16:06:15 Kidney stone [id number] Uric acid urolithiasis [id number] Anibal hematuria [id number] Jareth Marie [facility] [address] [place] [address],[address] [address] 10/21/2022 16:27:07 10/22/2022 16:27:25 Kidney stone [id number] Health Concerns Section Related Observation LastModified by Organization Detai ls LastModified Time None Recorded Concern Status LastModified by Organization Details LastModified Time None Recorded Advance Directives Directive None Recorded Payers Encounter Date Sequence Insurance Name Policy Number Policy Blackburn Covered Member ID Blackburn Member ID Guarantor Name 10/20/[address] [facility] (MEDICAID REPLACEMENT - HMO) [facility]im [id number] Pardeep A Deim 10/17/2022 1 [facility] (MEDICAID REPLACEMENT - HMO) MNDBBS Pardeep A Deim [id number] Pardeep A Deim Notes Date Note [...] stones since that time. Kale Cason MD [address] [place] [address],[facility] [address], [place], [address], [facility] 10/17/2022 15:56:04
[2023-08-13] MEDS: lidocaine HCL 2 % JELLY (TOP) STERILE 6 ML TOPICAL (08:25)
[2023-08-13 08:41] LABS: Appearance Urine Clear (Clear); Bilirubin Urine Negative (Negative); Blood Urine 3+ (Negative); Color Urine Yellow (Yellow); Glucose Urine Negative (Negative); Ketones Urine Negative (Negative); Leukocyte Esterase Urine Negative (Negative); Nitrite Urine Negative (Negative); Protein Urine Negative (Negative); Urobilinogen Urine 0.2 (0.2-1.0)
[2023-08-13 08:54] LABS: Mucus Urine Few; Squamous Epithelial Cell Urine Few (None-Few); WBC Urine 0-2 (0-5)
--- NOTE | 2023-08-13 09:07 | ED.NURSE ---
Pt saenz bag changed to a leg bag.
== END 2023-08-13 09:20 | disposition home or self-care (01) ==
PROVIDERS: Emergency Provider Family Medicine; PCP Family Medicine
DX: R33.8 Other retention of urine (principal)
CPT/HCPCS: 51702; 51798; 81001; 87086; 99283; 99284

== ENCOUNTER 2023-08-15 22:50 | Emergency (ER) | payer BC, SELFPAY ==
[2023-08-15 23:00] VITALS: BP 135/84; PULSE 99; RESP 16; TEMP 36.4; O2SAT 97; BMI 32.1
--- NOTE | 2023-08-15 23:47 | ED.GENADULT ---
HPI - General Adult General Chief complaint: Urogenital Problems, Male Stated complaint: difficulty urinating Time Seen by Provider: 08/15/23 23:04 History of Present Illness HPI narrative: pt had cath removed today at 1400. Was told to be seen if not able to have a full pee by 6-8 hours. Pt is urinating 2 oz or less. Pt has urge to pee every 25 minutes. No reports of pain . 63-year-old man presenting to the emergency department with difficulty urination following removal of catheter the today around 9 or 10 hours ago. Laparoscopic cholecystectomy 4 days ago with postop urinary retention. Was seen in this department 2 days ago and had a Sarmiento placed for continued urinary retention and at follow-up today had it removed. Is not having any fever. Is increasingly uncomfortable in the low abdomen following up as recommended as he has not had significant void over the last 8 hours or so. Is taking Flomax. Related Data Home Medications ?Medication ?Instructions ?Recorded ?Confirmed aspirin 81 mg tablet,delayed 81 mg PO DAILY 08/07/23 08/12/23 release (Ecotrin Low Strength) lisinopril 10 mg tablet 10 mg PO DAILY 08/07/23 08/12/23 metformin 500 mg tablet,extended 1,000 mg PO BID 08/07/23 08/12/23 release 24 hr potassium citrate 15 mEq (1,620 15 meq PO DAILY 08/07/23 08/12/23 mg) tablet,extended release Previous Rx's ?Medication ?Instructions ?Recorded ciprofloxacin HCl 500 mg tablet 500 mg PO BID 10 days #20 tabs 03/06/22 (Cipro) phenazopyridine 200 mg tablet 200 mg PO TID PRN pain #10 tabs 03/06/22 (Pyridium) hydrocodone 5 mg-acetaminophen 325 1 tab PO Q6H PRN pain #10 tabs 08/12/23 mg tablet sennosides 8.6 mg capsule (senna) 8.6 mg PO DAILY PRN constipation 08/12/23 #90 caps Allergies Allergy/AdvReac Type Severity Reaction Status Date / Time meperidine [From Demerol] Allergy Unknown Verified 08/12/23 06:24 Review of Systems Status of ROS: Reports: 6 or more systems reviewed and unremarkable except as noted in History and below PFSH PFS Medical History Hematuria ?R31.9 - Hematuria, unspecified (ICD-10) Uric acid kidney stone ?N20.0 - Calculus of kidney (ICD-10) Type 2 diabetes mellitus without complication, with long-term current use of insulin ?E11.9 - Type 2 diabetes mellitus without complications (ICD-10) ?Z79.4 - assisted (current) use of insulin (ICD-10) Hypertension ?I10 - Essential (primary) hypertension (ICD-10) Surgical History Hx of anterior cruciate ligament tear reconstruction ?Z98.890 - Other specified postprocedural states (ICD-10) Social History Smoking Status: Never smoker Do you use any of these nicotine containing products: None Second hand tobacco smoke exposure: No How often do you have a drink containing alcohol: never AUDIT-C Alcohol total score: 0 Non-prescribed substance use: denies use Caffeine: Yes Exam Narrative: Exam Narrative: Pleasant talkative. Appears a little uncomfortable. Skin is warm and dry. Extremities without edema. No indication of inflammation around surgical sites. Little uncomfortable to palpation in the suprapubic area. Const: Vital Signs, click to edit/add: Vital Signs - 24 hr 08/15/23 23:00 Temperature 97.5 F L Pulse Rate [Left P ulse Oximeter] 99 Respiratory Rate 16 Blood Pressure [Ri ght Upper Arm] 135/84 Pulse Oximetry 97 Oxygen Delivery Me thod Room Air Documenting provider has reviewed patient's vital signs: yes Course Vital Signs Vital signs: Initial Vital Signs Temperature 97.5 F L 08/15/23 23:00 Temperature Source Temporal Artery Scan 08/15/23 23:00 Pulse Rate 99 08/15/23 23:00 Pulse Rhythm Regular 08/15/23 23:00 Respiratory Rate 16 08/15/23 23:00 Blood Pressure 135/84 08/15/23 23:00 Blood Pressure Mean 101 08/15/23 23:00 Blood Pressure Position Sitting 08/15/23 23:00 Pulse Oximetry 97 08/15/23 23:00 Oxygen Delivery Method Room Air 08/15/23 23:00 Vital Signs Temperature 97.5 F L 08/15/23 23:00 Pulse Rate 99 08/15/23 23:00 Respiratory Rate 16 08/15/23 23:00 Blood Pressure 135/84 08/15/23 23:00 Pulse Oximetry 97 08/15/23 23:00 Oxygen Delivery Method Room Air 08/15/23 23:00 Temperature 97.5 F L 08/15/23 23:00 Pulse Rate 99 08/15/23 23:00 Respiratory Rate 16 08/15/23 23:00 Blood Pressure 135/84 08/15/23 23:00 Pulse Oximetry 97 08/15/23 23:00 Oxygen Delivery Method Room Air 08/15/23 23:00 Medical Decision Making MDM Narrative Medical decision making narrative: Sounds to be retaining again. Bladder scan does show between 200 - 300 mL. Sarmiento placed again without significant difficulty and I believe drained between 500 and 600 mL. Probably just needs to keep this in for a little longer period of time. See patient discharge plan for further discussion Lab Data Labs: Lab Results 08/16/23 Range/Units 00:50 Urine Color Yellow (Yellow) Urine Appearance Clear (Clear) Urine pH 5.5 (5.0-8.5) Ur Specific [place] 1.010 (1.000-1.030) Urine Protein Negative (Negative) Urine Glucose (UA) Negative (Negative) Urine Ketones Negative (Negative) Urine Blood 2+ A (Negative) Urine Nitrite Negative (Negative) Urine Bilirubin Negative (Negative) Urine Urobilinogen 0.2 (0.2-1.0) Ur Leukocyte Esterase Negative (Negative) Urine RBC 0-2 (0-2) Urine WBC 2-5 (0-5) Ur Squamous Epith Cells None (None-Few) Urine Bacteria Few A (None) Discharge Plan Discharge Clinical Impression: Postoperative urinary retention Patient Disposition: Home, Self-Care Condition: Improved Additional Instructions: Continue to take your Flomax as prescribed. I would follow-up on Friday or Friday of this coming week to consider removal of this catheter. Prescriptions: No Action aspirin [Ecotrin Low Strength] 81 mg tablet,delayed release (DR/EC) 81 mg PO DAILY lisinopril 10 mg tablet 10 mg PO DAILY metformin 500 mg tablet extended release 24 hr 1,000 mg PO BID potassium citrate 15 mEq tablet extended release 15 meq PO DAILY hydrocodone-acetaminophen 5-325 mg tablet 1 tab PO Q6H PRN (Reason: pain) Qty: 10 0RF senna 8.6 mg capsule 8.6 mg PO DAILY PRN (Reason: constipation) Qty: 90 0RF ciprofloxacin HCl [Cipro] 500 mg tablet 500 mg PO BID 10 Days Qty: 20 0RF phenazopyridine [Pyridium] 200 mg tablet 200 mg PO TID PRN (Reason: pain) Qty: 10 0RF Follow Up/Referrals: Jhonatan Boone MD [Primary Care Provider] - Stand Alone [facility] Instructions
--- OUTSIDE RECORDS SUMMARY | 2023-08-16 00:23 | XMS_ITS | Clinical Summary ---
Author Organization [employer] [facility] Address [place], [place] [address] Care Team Providers Care County Adviser Name Role Phone Marlene Moore RN Unavailable [phone] Jhonatan Boone MD Primary Care Provider Allergies Active Allergy Reactions Criticality Noted Date Comments Meperidine *Unknown 05/01/2015 surgery Medications Medication Sig Dispensed Refills Start Date End Date Status blood-glucose meterIndications :Type 2 diabetes mellitus without complication, without long-term current use of insulin (HC) Inject subcutaneous. Dispense meter, test strips, lancets covered by pt ins. E11.9 NIDDM type II - Test 2 times/day. Reason: High A1C 1 Each 03/20/2022 Active aspirin (ECOTRIN) 81 mg enteric coated tabletIndication s:Type 2 diabetes mellitus without complication, without long-term current use of insulin (HC) Take 1 Tablet (81 mg) by mouth once daily with a meal. 0 04/17/2022 Active Accu-Chek Softclix LancetsIndicatio ns:Type 2 diabetes mellitus without complication, without long-term current use of insulin (HC) USE TO TEST 2 TIMES DAILY 200 Each 3 05/27/2022 Active lisinopriL (PRINIVIL; ZESTRIL) 10 mg tabletIndication s:Benign essential HTN Take 1 Tablet (10 mg) by mouth once daily. 90 Tablet 3 01/16/2023 Active Potassium Citrate 15 mEq Extended-Release tabletIndication s:Uric acid kidney stone Take 1 Tablet (15 mEq) by mouth once daily. 90 Tablet 3 01/16/2023 Active metFORMIN (GLUCOPHAGE XR) 500 mg Extended-Release tabletIndication s:Type 2 diabetes mellitus without complication, without long-term current use of insulin (HC) Take 2 Tablets (1,000 mg) by mouth two times daily with meals. 360 Tablet 1 01/16/2023 Active blood sugar diagnostic (Accu-Chek Guide test strips) stripIndications :Type 2 diabetes mellitus without complication, without long-term current use of insulin (HC) USE TO TEST 2 TIMES PER DAY 200 Each 3 08/06/2023 Active tamsulosin (Flomax) 0.4 mg capsuleIndicatio ns:Acute urinary retention Take 1 Capsule (0.4 mg) by mouth once daily after a meal. 14 Capsule 08/13/2023 Active blood sugar diagnostic (Blood Glucose Test) stripIndications :Type 2 diabetes mellitus without complication, without long-term current use of insulin (HC) Test two times per day. 100 Each 03/20/2022 08/06/19 24 Discontinued polyethylene glycol-electroly te (GOLYTELY) 236-22.74-6.74 -5.86 gram suspensionIndica tions:Encounter for screening colonoscopy Drink 2 liters the day before the procedure and 2 liters 6 hours prior to procedure. 4000 mL 09/06/2022 08/15/19 24 Discontinued(*Me d complete/Regimen complete/Level of care change) Active Problems Problem Noted Date Diagnosed Date [...] Encounters Date Type Department Care Team Description 08/15/2023 1:40 PM CDT Office Visit [facility] [address] [place] [address] Jhonatan Boone MD ER Follow up ([facility], 08/13/2023, unable to urinate - catheter placed) 08/15/2023 Nurse Triage [facility] [address] [place] [address] Jhonatan Boone MD Urinary Problem 08/15/2023 Travel 08/14/2023 Telephone [facility] [address] [place] [address] Francheska Barry MD 08/14/2023 Nurse Triage [facility] [address] [place] [address] Jhonatan Boone MD Urinary Problem 08/13/2023 Nurse Triage [facility] [address] [place] [address] Francheska Barry MD Urinary Problem 08/13/2023 Telephone [facility] [address] [place] [address] Francheska Barry MD 08/13/2023 Telephone [facility] [address] [place] [address] Jhonatan Boone MD GETTING CATHETER REPLACED 08/12/2023 8:00 AM CDT Office Visit [facility] at [address] [address] Francheska Barry MD Arrived 08/12/2023 Lab Requisition [facility] [phone] Unknown, Doctor 08/06/[address] [address] Jhonatan Boone MD Refill Request (Accu-chek Guide Test Strips) 07/31/2023 11:50 AM CDT Preop Visit [address] [address] Jhonatan Boone MD Diabetes (6 month follow up); Preoperative Exam (DOS: 08/12/2023, laparoscopic cholecystectomy, Dr. Barry, [facility]) 07/30/2023 Travel 06/11/2023 2:00 PM CDT Office [address] [place] [address] Francheska Barry MD Consult (Gallbladder referred by Dr. Boone) 06/10/2023 Travel 06/03/2023 Travel 05/31/2023 Telephone [facility] [address] [place] [address] Jhonatan Boone MD Follow Up 05/31/2023 Orders Only [facility] [address] [place] [address] Jhonatan Boone MD <No scans attached> 05/30/2023 10:30 AM CDT Ancillary Procedure [facility] [address] [place] [address] 05/30/2023 Travel from Last 3 Months Immunizations Name Administration Dates Next Due COVID-19 Vaccine Spikevax (M oderna 50mcg/0.5mL) 12YO+ [id number] Formula PF 01/02/2023 COVID-19 vaccine (Pfizer-Bio NTech 30mcg/0.3mL) 12YO+ BIVALENT PF, MDV 12/24/2021 COVID-19 vaccine (Pfizer-Bio NTech 30mcg/0.3mL) 12YO+ FAWN-SUCROSE PF, MDV 07/06/2021 COVID-19 vaccine (Pfizer-Bio NTech 30mcg/0.3mL) PF, MDV 01/18/2021,05/06/2020,04/15/2020 Influenza RIV4 (Age 18+ Year s) PRESERV FREE 12/19/2020 Influenza, IIV4 11/19/2022,,12/22/2018,12/10 Influenza,CCIIV4 PRESERV FREE 12/24/2021 Pneumococcal Conj 20-valent [...] Sign Reading Time Taken Comments Blood Pressure 140/84 08/15/2023 1:42 PM CDT Pulse 97 08/15/2023 1:42 PM CDT Temperature 36.8 ??C (98.3 ??F) 05/01/2015 3:00 PM CS T Respiratory Rate 16 09/10/2022 11:4 5 AM CDT Oxygen Saturation 98% 08/15/2023 1:42 PM CDT Inhaled Oxygen Concentration - - Weight 104.7 kg (230 lb 12.8 oz) 08/15/2023 1:42 PM CDT Height 179 cm (5' 10.47) 07/31/2023 11 :39 AM CDT Body Mass Index 32.67 07/31/2023 11:39 AM CDT Plan of Treatment Upcoming Encounters Date Type Department Care Team (Late st Contact Info) Description 08/27/2023 1:15 PM CDT Office Visit [facility] [address] [place] [address] Francheska Barry MD [address] [place] [address] 01/23/2024 10:30 AM MEDICAL SOCIAL WORKER Office Visit [facility] [address] [place] [address] Jhonatan Boone MD [address] [place] [address] Health Maintenance Due Date Last Done Comments [...] Procedure Name Priority Date/Time Associated Diagnosis Comments PATH TISSUE EXAM Routine 08/12/2023 9:25 AM CDT HEMOGLOBIN Routine 07/31/2023 11:33 AM CDT Preop [...] MEASURED LDL Add On 01/16/2023 9:10 AM MEDICAL SOCIAL WORKER Type 2 diabetes mellitus without complication, without long-term current use of insulin (HC) COLONOSCOPY SCREENING Routine 09/10/2022 10:20 AM CDT Screening for colon cancer LC HIV-1/O/2, 4TH GENERATION Routine 03/12/2022 11:00 AM MEDICAL SOCIAL WORKER Screening for HIV (human immunodeficiency virus) LC HCV ANTIBODY RFX TO QUANT PCR Routine 03/12/2022 11:00 AM MEDICAL SOCIAL WORKER Need for hepatitis C screening test from Last 3 Months or Most Recently Relevant to Health Maintenance Results * PATH TISSUE EXAM (08/12/2023 9:25 AM CDT) Only the most recent of2 resultswithin the time period is included. Case Report Pathology Report ?Case: [id number] ? Authorizing Provider: ??Unknown, Doctor ?Collected: ? 08/12/2023924 ? Ordering Location: ? [facility] ?Received: ?08/13/2023 0646 ? Pathologist: ? Jerrod Whipple, ? MD ? Specimen: ?Gallbladder ? 08/14/2023 1:05 PM CDT [facility] LABORAT[facility] Final Diagnosis A) GALLBLADDER, CHOLECYSTECTOMY: 1. Acute and chronic cholecystitis 2. Cholelithiasis 3. Cholesterolosis 4. Negative for dysplasia and malignancy 08/14/2023 1:05 PM CDT [facility] LABORATORY-C ENTRAL LABORATORY Clinical Information Biliary colic, chronic cholecystitis 08/14/2023 1:05 PM CDT [facility] LABORAT[facility]-C ENTRAL LABORATORY Gross Description A) Received in formalin, labeled with the patient's name and gallbladder, is a 9.6 x 2.6 x 1.5 cm disrupted gallbladder. ??There are multiple yellow gallstones identified. There are no mucosal lesions identified. The average wall thickness is 0.4 cm. ??There is thickening of the gallbladder wall. ??There is a 0.7 x 0.5 cm cystic lesion in the gallbladder fundus. No cystic duct lymph node is identified. Counselor Marriage And Family sections are submitted in 2 cassettes. EKW 08/13/2023 08/14/2023 1:05 PM CDT [facility] LABORATORY-C ENTRAL LABORATORY Microscopic Description The final diagnosis is based on microscopic examination of appropriate sections of all specimens. 08/14/2023 1:05 PM CDT [facility] LABORATORY-C ENTRAL LABORATORY Additional Information Interpreted at [facility], Central Laboratory - [address], [place] [address] 08/14/2023 1:05 PM CDT [facility]- ENTRKY LABORATORY Other SPECIMEN FROM GALLBLADDER / Unknown 08/12/2023 9:25 AM CDT 08/13/2023 6:46 AM CDT Doctor Unknown PATHOLOGY/[facility]TOLOGY [facility] [address] [place] [address], * HEMOGLOBIN (07/31/2023 11:33 AM CDT) HEMOGLOBIN 15.3 13.5 - 17.5 g/dL 07/31/2023 11:43 AM CDT [facility] MCV 90 80 - 100 fL 07/31/2023 11:43 AM CDT [facility] Blood BLOOD SPECIMEN / Unknown Venipuncture / Unknown 07/31/2023 11:33 AM CDT 07/31/2023 11:34 AM CDT Jhonatan Boone MD HEMATOLOGY [facility] [address] [place] [address], * HEMOGLOBIN A1C MONITORING (POCT) (07/31/2023 11:33 AM CDT) HEMOGLOBIN A1C MONITORING (POCT) 5.9 <=6.4 % 07/31/2023 11:44 AM CDT [facility] Blood BLOOD SPECIMEN / Unknown Venipuncture / Unknown 07/31/2023 11:33 AM CDT 07/31/2023 11:34 AM CDT Narrative [facility] - 07/31/2023 11:44 AM CDT ? (<=6.9%) [...] Anemias, Splenectomy ? Jhonatan Boone MD CHEMISTRY [facility] [address] [place] [address], * (ABNORMAL) BASIC METABOLIC PANEL (07/31/2023 11:33 AM CDT) SODIUM 139 136 - 145 mmol/L 08/01/2023 1:10 AM CDT [facility] TR[facility] LAB[facility]AT[facility] POTASSIUM 4.6 3.5 - 5.1 mmol/L 08/01/2023 1:10 AM CDT [facility] LAB[facility] CHLORIDE 100 98 - 107 mmol/L 08/01/2023 1:10 AM T [facility] CO2,TOTAL 28 22 - 29 mmol/L 08/01/2023 1:10 AM T [facility] ANION GAP 11 5 - 18 08/01/2023 1:10 AM T [facility] GLUCOSE 109(H) 70 - 99 mg/dL 08/01/2023 1:10 AM T [facility] CALCIUM 9.9 8.8 - 10.2 mg/dL 08/01/2023 1:10 AM T [facility] BUN 13 8 - 23 mg/dL 08/01/2023 1:10 AM T [facility] CREATININE 0.81 0.70 - 1.20 mg/dL 08/01/2023 1:10 AM CDT [facility] BUN/CREAT RATIO 16 10 - 20 4 1:10 AM CDT [facility] eGFR >90 >90 mL/min/1.7 3m2 08/01/2023 1:10 AM CDT [facility] Comment:As of 2021, eG [...] Jhonatan Boone MD CHEMISTRY Performing Organization Address City/[facility]/ZIP Co de Phone Number [facility] [address] [place] [address], * PSA TOTAL SCREEN (07/31/2023 11:33 AM CDT) PSA TOTAL (SCREEN) 2.88 <4.00 ng/mL 08/01/2023 1:10 AM CDT [facility] Blood BLOOD SPECIMEN / Unknown Venipuncture / Unknown 07/31/2023 11:33 AM CDT 07/31/2023 11:34 AM CDT Narrative [facility] - 08/01/2023 1:10 AM CDT The [...] be used interchangeably. Jhonatan Boone MD LABORATORY [facility] LABORATORY-CENTRAL LABORATORY [address] [place] [address], [place] * US ABDOMEN LIMITED RUQ (05/30/2023 10:58 AM CDT) Anatomical Region Laterality Modality Abdomen, LIVER Ultrasound 05/31/2023 10:0 7 AM CDT Impressions 05/31/2023 10:07 AM CDT Cholelithiasis with irregular gallbladder wall thickening suggesting cholecystitis. Dictated by Agustin Huber MD @ 05/31/2023 10:07:30 AM (Electronically Signed) Narrative 05/31/2023 10:07 AM CDT For Patients: ??As a result of the Cures Act, medical imaging exams and procedure [...] Signed) Jhonatan Boone MD US * (ABNORMAL) LIPID PANEL W REFLEX MEASURED LDL (01/16/2023 9:10 AM MEDICAL SOCIAL WORKER) CHOLESTEROL,TOTAL 195 100 - 199 mg/dL 01/16/2023 5:15 PM MEDICAL SOCIAL WORKER [facility] Comment: Cholesterol, Total Reference Ranges Desirable <200 mg/dL Borderline 200-239 mg/dL High >=240 mg/dL TRIGLYCERIDES 161(H) <150 mg/dL 01/16/2023 5:15 PM MEDICAL SOCIAL WORKER [facility] TR[facility] HDL CHOLESTEROL 46 >40 mg/dL 5:15 PM MEDICAL SOCIAL WORKER [facility] LABORATORY-[facility] TR[facility] LABORATORY NON-HDL CHOLESTEROL 149(H) <145 mg/dl 01/16/2023 5:15 PM MEDICAL SOCIAL WORKER [facility] LABORATORY-[facility] TR[facility] LAB[facility]ATORY CHOL/HDL RATIO 4.24 <4.50 01/16/2023 5:15 PM MEDICAL SOCIAL WORKER [facility] TR[facility] LDL CHOLESTEROL 117 <=130 mg/dL 01/16/2023 5:15 PM MEDICAL SOCIAL WORKER [facility] LAB[facility] TR[facility]ATORY VLDL CHOLESTEROL 32(H) <=30 mg/dL 01/16/2023 5:15 PM MEDICAL SOCIAL WORKER [facility] TRAL LABORATORY PROVIDER ORDERED STATUS RANDOM 01/16/2023 5:15 PM MEDICAL SOCIAL WORKER [facility] TR[facility] LAB[facility]ATORY Blood BLOOD SPECIMEN / Unknown Venipuncture / Unknown 01/16/2023 9:10 AM MEDICAL SOCIAL WORKER 01/16/2023 9:10 AM MEDICAL SOCIAL WORKER Jhonatan Boone MD CHEMISTRY [facility] LABORATORY-CENTRAL LABORATORY [address] [place] [address], [place] * COLONOSCOPY (09/10/2022 10:28 AM CDT) [...] adequate candidate for conscious sedation. The endoscope [id number] was passed through the anus andadvanced to [...] 10:28 AM Procedure Code(s): --- Professional --- 30207, Colonoscopy, flexible; with removalof tumor(s), polyp(s), or other lesion(s) bysnare technique Diagnosis Code(s): --- Professional --- Z12.11, Encounter for screening formalignant neoplasm of colon D12.3, Benign neoplasm of transverse colon (hepatic flexure or splenic flexure) K64.8, Other hemorrhoids CPT copyright 2021 [employer]. All rights reserved. The codes documented in this report are preliminary and upon casing flusher reviewmay be revised to meet current compliance requirements. Scope In: 11:14:59 AM Scope Withdrawal Time 0 hours 8 minutes 6 seconds Scope Out: 11:26:39 AM Jimbo Horton MD PROCEDURE ORD * LC HCV ANTIBODY RFX TO QUANT PCR (03/12/2022 11:00 AM MEDICAL SOCIAL WORKER) Pathologist [facility] HCV Ab <0.1 0.0 - 0.9 s/co ratio 03/15/2022 8:10 AM MEDICAL SOCIAL WORKER [facility] ESOTERIC TESTING ([facility]) Blood BLOOD SPECIMEN / Unknown Venipuncture / Unknown 03/12/2022 11:00 AM MEDICAL SOCIAL WORKER 03/12/2022 11:42 AM MEDICAL SOCIAL WORKER [facility] ESOTERIC TESTING ([facility]) - 03/15/2022 8:10 AM MEDICAL SOCIAL WORKER Performed at: ??[address] - [address] ??[id number] Architectural Draftsperson: Seven Soto MD, Phone: ??[phone] Jhonatan Boone MD LABORATORY [facility] ([facility]) [address] [place] [address], * LC HIV-1/O/2, 4TH GENERATION (03/12/2022 11:00 AM MEDICAL SOCIAL WORKER) [facility] HIV Scr 4th Gen Non Reactive Non Reactive 03/15/2022 3:07 AM [facility] ESOTERIC TESTING ([facility]) Comment: HIV Negative HIV-1/HIV-2 antibodies and HIV-1 p24 antigen were NOT detected. There is no laboratory evidence of HIV infection. Blood BLOOD SPECIMEN / Unknown Venipuncture / Unknown 03/12/2022 11:00 AM MEDICAL SOCIAL WORKER 03/12/2022 11:41 AM MEDICAL SOCIAL WORKER Narrative [facility] FOR [facility] ([facility]) - 03/15/2022 3:07 AM MEDICAL SOCIAL WORKER Performed at: ??01 - [facility] [address] [facility], [place], [place] ??[id number] Architectural Draftsperson: Seven Soto MD, Phone: ??[phone] Jhonatan Boone MD LABORATORY [facility] ([facility]) [facility] from Last 3 Months or Most Recently Relevant to Health Maintenance Care Teams County Adviser Relationship Specialty Start Date End Date Jhonatan Boone MD [address] [place] [address] PCP - General Family Practice 07/16/22 Marlene Moore, RN [address] [place] [address] [employer] Dowel Machine Operator 04/08/22
--- OUTSIDE RECORDS SUMMARY | 2023-08-16 00:23 | XMS_ITS | Data Portability ---
Author Organization [facility], [facility] Address [address] [place] [address] Care Team Providers Care [employer] Developer Name Role Phone MELODY BOONE Primary Care Provider [phone] Assessment Encounter Date Assessment Date Assessment LastModified by Organization Details LastModified Time 10/17/2022 10/17/2022 62 year old male with gross hematuria and nephrolithias is. Not available 10/17/2022 15:53:43 Plan of Treatment Reminders Order Date Submit Date Provider Last Modified By Organization Details Last Modified Time Details Appointments None recorded. Lab stone risk analysis panel 2022 023 [facility], [address], [address], [place], [address], 3 18:32:18 Referral None recorded. Procedures None recorded. Surgeries None recorded. Imaging US, kidney 2022 023 [facility], [address], [address], [place], [address], 3 08:47:37 Medication Orders None recorded. Patient TargetsNo targets recorded. Patient Instructions Encounter Date Encounter Id Patient Instructions Last Modified By Organization Details Last Modified Time 10/17/2022 [id number] Nephrolithiasis: He has passed multiple stones which [...] volume 2.250 L 0.510- 2.560 Not Available [facility] [address], [place], [address], 10/21/2022 18:32:17 10/22/19 23 10/21/2022 UROST ONE 24 pH 6.10 5.60-7 .10 Not Available [facility] [address], [place], [address], 10/21/2022 18:32:17 10/22/19 23 10/21/2022 UROST ONE 24 U chloride 61.0 mmol/ L Not Available [facility] [address], [place], [address], 10/21/2022 18:32:17 10/22/19 23 10/21/2022 UROST ONE 24 U creatinine 62.0 mg/dL Not Available [facility] [address], [place], [address], 10/21/2022 18:32:17 10/22/19 23 10/21/2022 UROST ONE 24 U magnesium 3.0 mg/dL Not Available [facility] [address], [place], [address], 10/21/2022 18:32:17 10/22/19 23 10/21/2022 UROST ONE 24 U phosphorus 26.0 mg/dL Not Available [facility] [address], [place], [address], 10/21/2022 18:32:17 10/22/19 23 10/21/2022 UROST ONE 24 U potassium 30.40 mmol/ L Not Available [facility] [address] [place] [address] [address], [place], [address], 10/21/2022 18:32:17 10/22/19 23 10/21/2022 UROST ONE 24 U protein 4.25 mg/dL Not Available [facility] [address] [place] [address] [address], [place], [address], 10/21/2022 18:32:17 10/22/19 23 10/21/2022 UROST ONE 24 U sodium 59.0 mmol/ L Not Available [facility] [address] [place] [address] [address], [place], [address], 10/21/2022 18:32:17 10/22/19 23 10/21/2022 UROST ONE 24 U uric acid 28.0 mg/dL Not Available [facility] [address], [place], [address], 10/21/2022 18:32:17 10/22/19 23 10/21/2022 UROST ONE 24 24 calcium 185.6 mg/24 _hour s 8.5-27 7.0 Not Available [facility] [address] [place] [address] [address], [place], [address], 10/21/2022 18:32:17 10/22/19 23 10/21/2022 UROST ONE 24 24 chloride 137.25 mmol/ 24_ho urs 28.20- 244.70 Not Available [facility] [address] [place] [address] [address], [place], [address], 10/21/2022 18:32:17 10/22/19 23 10/21/2022 UROST ONE 24 24 magnesium 67.73 mg/24 _hour s 43.00- 246.00 Not Available [facility] [address], [place], [address], 10/21/2022 18:32:17 10/22/19 23 10/21/2022 UROST ONE 24 24 phosphorus 585.00 mg/24 _hour s 127.00 -1318. 00 Not Available [facility] [address] [place] [address] [address], [place], [address], 10/21/2022 18:32:17 10/22/19 23 10/21/2022 UROST ONE 24 24 potassium 68.40 mmol/ 24_ho urs 7.70-9 1.30 Not Available [facility] [address] [place] [address] [address], [place], [address], 10/21/2022 18:32:17 10/22/19 23 10/21/2022 UROST ONE 24 24 protein 95.63 mg/24 _hour s 40.00- 150.00 Not Available [facility] [address] [place] [address], [place], [address], 10/21/2022 18:32:17 10/22/19 23 10/21/2022 UROST ONE 24 24 sodium 132.75 mmol/ 24_ho urs 26.40- 243.80 Not Available [facility] [address] [place] [address] [address], [place], [address], 10/21/2022 18:32:17 10/22/19 23 10/21/2022 UROST ONE 24 24 uric acid 630.00 mg/24 _hour s 136.00 -763.0 0 Not Available [facility] [address] [place] [address] [address], [place], [address], 10/21/2022 18:32:17 10/22/19 23 10/21/2022 UROST ONE 24 24creatinine 1395.0 0 mg/24 hrs 384.00 -2189. 00 Not Available [facility] [address], [place], [address], 10/21/2022 18:32:17 10/22/1910/23/2022 CITRI C ACID (CITR ATE), URINE citric acid, urine 342 mg/L undefi douglas Not Available [facility] [address] [place], [address], 10/23/2022 16:10:08 10/22/19 23 10/23/2022 CITRI C ACID (CITR ATE), URINE citric acid, U, 24HR 770 mg/24 _HR 320-12 40 Not Available [facility] ([facility] [address] [place], [address], 10/23/2022 16:10:08 10/22/19 23 10/23/2022 OXALA TE, QUANT , 24-HO UR URINE oxalates, urine 7 mg/L undefi douglas Not Available [facility] ([facility] [address] [place], [address], 10/23/2022 22:06:45 10/22/1910/23/2022 OXALA TE, QUANT , 24-HO UR URINE oxalates, urine 24HR 16 mg/24 _HR 7-44 Not Available [facility] ([facility] [address] [place], [address], 10/23/2022 22:06:45 10/03/1903/20/2022 CT, urogr am No observ ation record ed. Not Available 10/17/2022 15:47:20 10/21/1910/17/2022 US, retro perit oneum , compl ete No observ ation record ed. [facility] [address], [place], [address], 10/20/2022 18:06:49 Result Notes None recorded. Procedures Surgical History Date Name Laterality Status Provider Name and Address Organization Details Recorded Time 10/22/19 23 24 Hour Urine Part 1 completed RYAN Simpson [facility] 10/21/2022 16:30:09 09/11/19 23 Diagnostic colonoscopy completed Not Available Health Note 10/13/2022 16:30:13 Imaging Results Imaging Date Name Status LastModified by Organiz ation Details LastModified Time 03/20/2022 CT, urogram completed Information n ot available 10/17/2022 15:47:20 10/17/2022 US, retroperitone um, complete completed [facility] [address], [place], [address], 10/20/2022 18:06:49 Procedure Notes None recorded. Medical [...] Details Last Updated DateTime 10/17/2022 30.2 kg/m2 145720.4534 19684 g 182.88 cm Not Available Health Note [...] Family history unknown Medical History Condition Response High Blood Pressure Y Kidney Stones Y Lung Disease N Depression N GERD/Acid Reflux N Sexually Transmitted Infection N Cancer N High Cholesterol N Diabetes Y Bleeding Disorder N Heart Disease N Immunizations Vaccine Type Date Status Provider Name and Address Organization Details Recorded Time SARS-COV-2 (COVID-19) vaccine, UNSPECIFIED 12/24/2021 completed Not Available [facility] 10/21/2022 16:28:42 influenza, unspecified formulation 12/24/2021 completed Not Available [facility] 10/21/2022 16:28:42 Influenza, MDCK, quadrivalent, PF 12/24/2021 completed Zach Meath null, [facility] 10/17/2022 15:31:58 Influenza, recombinant, quadrivalent, PF 12/19/2020 completed Zach Meath null, [facility] 10/17/2022 15:31:58 COVID-19, mRNA, LNP-S, PF, 30 mcg/0.3 mL dose 04/15/2020 completed Zach Meath null, [facility] 10/17/2022 15:31:58 COVID-19, mRNA, LNP-S, PF, 30 mcg/0.3 mL dose 05/06/2020 completed Zach Meath null, [facility] 10/17/2022 15:31:58 COVID-19, mRNA, LNP-S, PF, 30 mcg/0.3 mL dose 01/18/2021 completed Zach Meath null, [facility] 10/17/2022 15:31:58 COVID-19, mRNA, LNP-S, PF, 30 mcg/0.3 mL dose, duyen-sucrose 07/06/2021 completed Zach Meath null, [facility] 10/17/2022 15:31:58 COVID-19, mRNA, LNP-S, bivalent, PF, 30 mcg/0.3 mL dose 12/24/2021 completed [facility] null, [facility] 10/17/2022 15:31:58 Influenza, split virus, quadrivalent, PF 12/10/2017 completed Zach Meath null, [facility] 10/17/2022 15:31:58 Influenza, split virus, quadrivalent, PF 12/15/2019 completed [facility] Meath null, [facility] 10/17/2022 15:31:58 Influenza, split virus, quadrivalent, PF 12/22/2018 completed Zach Meath null, [facility] 10/17/2022 15:31:58 Past Encounters Encounter ID Performer Location Encounter Start Date Encounter Closed Date Diagnosis/Indication Diagnosis SNOMED-CT Code [id number] [facility] [address] [place] [address],[address] [place] [address] 10/17/2022 15:25:16 10/17/2022 16:06:15 Kidney stone [id number] Uric acid urolithiasis [id number] Anibal hematuria [id number] [facility] [address] [place] [address],[address] [address] 10/21/2022 16:27:07 10/22/2022 16:27:25 Kidney stone [id number] Health Concerns Section Related Observation LastModified by Organization Detai ls LastModified Time None Recorded Concern Status LastModified by Organization Details LastModified Time None Recorded Advance Directives Directive None Recorded Payers Encounter Date Sequence Insurance Name Policy Number Policy Blackburn Covered Member ID Blackburn Member ID Guarantor Name 10/20/2022 1 [facility] [id number] Pardeep A Deim 10/17/2022 1 [facility] (MEDICAID REPLACEMENT - HMO) [id number] Pardeep A Deim [id number] Padreep A Deim Notes Date Note Type Note [...] stones since that time. Kale Cason MD [address] [place] [address],[facility] [address], [address], [facility] 10/17/2022 15:56:04
[2023-08-16 01:13] LABS: Appearance Urine Clear (Clear); Bilirubin Urine Negative (Negative); Blood Urine 2+ (Negative); Color Urine Yellow (Yellow); Glucose Urine Negative (Negative); Ketones Urine Negative (Negative); Leukocyte Esterase Urine Negative (Negative); Nitrite Urine Negative (Negative); Protein Urine Negative (Negative); Urobilinogen Urine 0.2 (0.2-1.0); pH Urine 5.5 (5.0-8.5)
[2023-08-16 01:26] LABS: Bacteria Urine Few; RBC Urine 0-2 (0-2)
== END 2023-08-16 02:05 | disposition home or self-care (01) ==
PROVIDERS: Emergency Provider Family Medicine; PCP Family Medicine
DX: R33.9 Retention of urine, unspecified (principal); Z98.890 Other specified postprocedural states
CPT/HCPCS: 51702; 51798; 81001; 87086; 99283; 99284

== ENCOUNTER 2023-08-16 21:17 | Emergency (ER) | payer BC, SELFPAY ==
[2023-08-16 22:12] VITALS: BP 124/85; PULSE 92; RESP 16; TEMP 36.7; O2SAT 96; BMI 32.1
--- OUTSIDE RECORDS SUMMARY | 2023-08-17 | XMS_ITS | Clinical Summary ---
Author Organization [facility] Address [place], [place] [address] Care Team Providers Care Auto Fleet Manager Name Role Phone Marlene Moore RN Unavailable [phone] Jhonatan Boone MD Primary Care Provider Allergies [...] Description 08/15/2023 1:40 PM CDT Office Visit [facility] [address] [place] [address] Jhonatan Boone MD ER Follow up ([facility], 08/13/2023, unable to urinate - catheter placed) 08/15/2023 Nurse Triage [facility] [address] [place] [address] Jhonatan Boone MD Urinary Problem 08/15/2023 Travel 08/14/2023 Telephone [facility] [address] [place] [address] Francheska Barry MD 08/14/2023 Nurse Triage [facility] [address] [place] [address] Jhonatan Boone MD Urinary Problem 08/13/2023 Nurse Triage [facility] [address] [place] [address] Francheska Barry MD Urinary Problem 08/13/2023 Telephone [facility] [address] [place] [address] Francheska Barry MD 08/13/2023 Telephone [facility] [address] [place] [address] Jhonatan Boone MD GETTING CATHETER REPLACED 08/12/2023 8:00 AM CDT Office Visit [facility] at [address] [phone] Francheska Barry MD 08/12/2023 Orders Only [facility] Scanner 1 scan: (1-Ord) [facility], LAPAROSCOPIC CHOLECYSTECTOMY, 08/12/2023 08/12/2023 Lab Requisition [facility] [phone] Unknown, Doctor 08/06/2023 Refill [facility] [address] [place] [address] Jhonatan Boone MD Refill Request (Accu-chek Guide Test Strips) 07/31/2023 11:50 AM CDT Preop Visit [facility] [address] [place] [address] Jhonatan Boone MD Diabetes (6 month follow up); Preoperative Exam (DOS: 08/12/2023, laparoscopic cholecystectomy, Dr. Barry, [facility]) 07/30/2023 Travel 06/11/2023 2:00 PM CDT Office Visit [facility] [address] [facility] [address] Francheska Barry MD Consult (Gallbladder referred by Dr. Boone) 06/10/2023 Travel 06/03/2023 Travel 05/31/2023 Telephone [facility] [address] [facility] [address] Jhonatan Boone MD Follow Up 05/31/2023 Orders Only [facility] [address] [place] [address] Jhonatan Boone MD <No scans attached> 05/30/2023 10:30 AM CDT Ancillary Procedure [facility] [address] [place] [address] 05/30/2023 Travel from Last 3 Months Immunizations Name Administration Dates Next Due COVID-19 Vaccine Spikevax (M oderna 50mcg/0.5mL) 12YO+ [id number] Formula PF 01/02/2023 COVID-19 vaccine (Pfizer-Bio NTech [...] History Relation Name Comments Other Maternal Grandfather Yusuf alvarez's Anesthesia Problem No Family History Relation Name [...] Description 08/27/2023 1:15 PM CDT Office Visit [address] [address] Francheska Barry MD [address] [place] [address] 01/23/2024 10:30 AM FEATHEREDGER AND REDUCER MACHINE Office Visit [facility] [address] [place] [address] Jhonatan Boone MD [address] [place] [address] Health Maintenance Due Date Last Done Comments Influenza for age 50-64 11/02/2023 11/20/19 23, 12/24/2021, 12/19/2020, Additional history exists BMI (ht [...] Procedure Name Priority Date/Time Associated Diagnosis Comments LAB TRACKING EVENT Routine 08/12/2023 9: 38 AM CDT PATH TISSUE EXAM Routine 08/12/2023 9:25 AM CDT SCAN-OPERATIVE/PROC EDURE REPORT 08/12/2023 12:00 AM CDT HEMOGLOBIN Routine 07/31/2023 11:33 AM [...] MEASURED LDL Add On 01/16/2023 9:10 AM FEATHEREDGER AND REDUCER MACHINE Type 2 diabetes mellitus without complication, without long-term current use of insulin (HC) COLONOSCOPY SCREENING Routine 09/10/2022 10:20 AM CDT Screening for colon cancer LC HIV-1/O/2, 4TH GENERATION Routine 03/12/2022 11:00 AM FEATHEREDGER AND REDUCER MACHINE Screening for HIV (human immunodeficiency virus) LC HCV ANTIBODY RFX TO QUANT PCR Routine 03/12/2022 11:00 AM FEATHEREDGER AND REDUCER MACHINE Need for hepatitis C screening test from Last 3 Months or Most Recently Relevant to Health Maintenance Results * LAB TRACKING EVENT (08/12/2023 9:38 AM CDT) Other (Other) Client Collect / Unknown 08/12/2023 9:38 AM CDT 08/12/2023 10:23 PM CDT Doctor Unknown LAB BILL ONLY [facility] [address] [place] [address], [place] * PATH TISSUE EXAM (08/12/2023 9:25 AM CDT) Only the most recent of2 resultswithin the time period is included. Case Report Pathology Report ?Case: [id number] ? Authorizing Provider: ??Unknown, Doctor ?Collected: ? 08/12/2023 0925 ? Ordering Location: ? [facility] ?Received: ?08/13/2023 0646 ? Pathologist: ? Jerrod Whipple, ? MD ? Specimen: ?Gallbladder ? 08/14/2023 1:05 PM CDT [facility]-C ENTRAL LABORATORY Final Diagnosis A) GALLBLADDER, CHOLECYSTECTOMY: 1. Acute and chronic cholecystitis 2. Cholelithiasis 3. Cholesterolosis 4. Negative for dysplasia and malignancy 08/14/2023 1:05 PM CDT [facility] ENTRAL LABORATORY Clinical Information Biliary colic, chronic cholecystitis 08/14/2023 1:05 PM CDT [facility] EN[facility]AL LABORATORY Gross Description A) Received in [...] No cystic duct lymph node is identified. Occupational Health Physician sections are submitted in 2 cassettes. EKW 08/13/2023 08/14/2023 1:05 PM CDT [facility] Microscopic Description The final diagnosis is based on microscopic examination of appropriate sections of all specimens. 08/14/2023 1:05 PM CDT [facility] ENTRTN LABORATORY Additional Information Interpreted at [facility] - [address], [place] [address] 08/14/2023 1:05 PM CDT [facility] Other SPECIMEN FROM GALLBLADDER / Unknown 08/12/2023 9:25 AM CDT 08/13/2023 6:46 AM CDT Doctor Unknown PATHOLOGY/CYTOLOGY [facility] [address] [place] [address], * SCAN-OPERATIVE/PROCEDURE REPORT (08/12/2023 12:00 AM CDT) Scanner OTHER * HEMOGLOBIN (07/31/2023 11:33 AM CDT) HEMOGLOBIN 15.3 13.5 - 17.5 g/dL 07/31/2023 11:[address] [facility] MCV 90 80 - 100 fL 07/31/2023 11:[address] [facility] Blood BLOOD SPECIMEN / Unknown Venipuncture / Unknown 07/31/2023 11:33 AM CDT 07/31/2023 11:34 AM CDT Jhonatan Boone MD HEMATOLOGY Performing Organization Address [facility] Co de Phone Number [facility] [address] [place] [address], * HEMOGLOBIN A1C MONITORING (POCT) (07/31/2023 11:33 AM CDT) HEMOGLOBIN A1C MONITORING (POCT) 5.9 <=6.4 % 07/31/2023 11:[address] [facility] Blood BLOOD SPECIMEN / Unknown Venipuncture / Unknown 07/31/2023 11:33 AM CDT 07/31/2023 11:34 AM CDT Narrative [facility] - 07/31/2023 11:44 AM [...] Anemias, Splenectomy ? Jhonatan Boone MD CHEMISTRY Performing Organization Address [facility] Co de Phone Number [facility] [address] [place] [address], * (ABNORMAL) BASIC METABOLIC PANEL (07/31/2023 11:33 AM CDT) SODIUM 139 136 - 145 mmol/L 08/01/2023 1:10 AM CDT [facility] TRAL LABORAT[facility] POTASSIUM 4.6 3.5 - 5.1 mmol/L 08/01/2023 1:10 AM T [facility] CHLORIDE 100 98 - 107 mmol/L 08/01/2023 1:10 AM T [facility] CO2,TOTAL 28 22 - 29 mmol/L 08/01/2023 1:10 AM T [facility] ANION GAP 11 5 - 18 08/01/2023 1:10 AM T [facility] GLUCOSE 109(H) 70 - 99 mg/dL 08/01/2023 1:10 AM T [facility] CALCIUM 9.9 8.8 - 10.2 mg/dL 08/01/2023 1:10 AM T [facility] BUN 13 8 - 23 mg/dL 08/01/2023 1:10 AM [facility] CREATININE 0.81 0.70 - 1.20 mg/dL 08/01/2023 1:10 AM T [facility] BUN/CREAT RATIO 16 10 - 20 1:10 AM T [facility] eGFR >90 >90 mL/min/1.7 3m2 08/01/2023 1:10 AM [facility] Comment:As of 2021, eG [...] 11:34 AM CDT Jhonatan Boone MD [facility]Y [facility] [address] [place] [address], * PSA TOTAL SCREEN (07/31/2023 11:33 AM CDT) PSA TOTAL (SCREEN) 2.88 <4.00 ng/mL 08/01/2023 1:10 AM CDT [facility] Blood BLOOD SPECIMEN / Unknown Venipuncture / Unknown 07/31/2023 11:33 AM CDT 07/31/2023 11:34 AM CDT Narrative [facility] - 08/01/2023 1:10 AM CDT The [...] be used interchangeably. Jhonatan Boone MD LABORATORY [facility] [address] [place] [address], [place] * US ABDOMEN LIMITED RUQ (05/30/2023 10:58 AM CDT) Anatomical Region Laterality Modality Abdomen, LIVER Ultrasound 05/31/2023 10:0 7 AM CDT Impressions 05/31/2023 10:07 AM CDT Cholelithiasis with irregular gallbladder wall thickening suggesting cholecystitis. Dictated by Agustin Huber MD @ 05/31/2023 10:07:30 AM (Electronically Signed) Narrative 05/31/2023 10:07 AM CDT For Patients: ??As a result of the 21st Century Cures Act, medical imaging exams and [...] For Patients: As a result of the Century Cures Act, medical imagingexams and procedure reports [...] W REFLEX MEASURED LDL (01/16/2023 9:10 AM FEATHEREDGER AND REDUCER MACHINE) CHOLESTEROL,TOTAL 195 100 - 199 mg/dL 01/16/2023 5:15 PM FEATHEREDGER AND REDUCER MACHINE [employer] [employer] [facility] Comment: Cholesterol, Total Reference Ranges Desirable <200 mg/dL Borderline 200-239 mg/dL High >=240 mg/dL TRIGLYCERIDES 161(H) <150 mg/dL 01/16/2023 5:15 PM FEATHEREDGER AND REDUCER MACHINE [facility] [employer] [facility] HDL CHOLESTEROL 46 >40 mg/dL 5:15 PM FEATHEREDGER AND REDUCER MACHINE [facility] NON-HDL CHOLESTEROL 149(H) <145 mg/dl 01/16/2023 5:15 PM FEATHEREDGER AND REDUCER MACHINE [facility] CHOL/HDL RATIO 4.24 <4.50 01/16/2023 5:15 PM FEATHEREDGER AND REDUCER MACHINE [facility] TRAL [facility] LDL CHOLESTEROL 117 <=130 mg/dL 01/16/2023 5:15 PM FEATHEREDGER AND REDUCER MACHINE [facility] VLDL CHOLESTEROL 32(H) <=30 mg/dL 01/16/2023 5:15 PM FEATHEREDGER AND REDUCER MACHINE [facility] TRA LABORATORY PROVIDER ORDERED STATUS RANDOM 01/16/2023 5:15 PM FEATHEREDGER AND REDUCER MACHINE [facility] Blood BLOOD SPECIMEN / Unknown Venipuncture / Unknown 01/16/2023 9:10 AM FEATHEREDGER AND REDUCER MACHINE 01/16/2023 9:10 AM FEATHEREDGER AND REDUCER MACHINE Jhonatan Boone MD CHEMISTRY [facility] [address] [place] [address], * COLONOSCOPY (09/10/2022 10:28 AM CDT) 09/10/2022 [...] adequate candidate for conscious sedation. The endoscope [id number] was passed through the anus andadvanced to [...] 10:28 AM Procedure Code(s): --- Professional --- 81112, Colonoscopy, flexible; with removalof tumor(s), polyp(s), or other lesion(s) bysnare technique Diagnosis Code(s): --- Professional --- Z12.11, Encounter for screening formalignant neoplasm of colon D12.3, Benign neoplasm of transverse colon (hepatic flexure or splenic flexure) K64.8, Other hemorrhoids CPT copyright 2021 [employer]. All rights reserved. The codes documented in this report are preliminary and upon training director reviewmay be revised to meet current compliance requirements. Scope In: 11:14:59 AM Scope Withdrawal Time 0 hours 8 minutes 6 seconds Scope Out: 11:26:39 AM Jimbo Horton MD PROCEDURE ORD * LC HCV ANTIBODY RFX TO QUANT PCR (03/12/2022 11:00 AM FEATHEREDGER AND REDUCER MACHINE) HCV Ab <0.1 0.0 - 0.9 s/co ratio 03/15/2022 8:10 AM FEATHEREDGER AND REDUCER MACHINE [facility] Blood BLOOD SPECIMEN / Unknown Venipuncture / Unknown 03/12/2022 11:00 AM FEATHEREDGER AND REDUCER MACHINE 03/12/2022 11:42 AM FEATHEREDGER AND REDUCER MACHINE Narrative [facility] - 03/15/2022 8:10 AM FEATHEREDGER AND REDUCER MACHINE Performed at: ??01 - [address] ??[id number] Account Administrator: Seven Soto MD, Phone: ??[phone] Jhonatan Boone MD LABORATORY [facility] ([facility]) [address] [place] [address], * LC HIV-1/O/2, 4TH GENERATION (03/12/2022 11:00 AM FEATHEREDGER AND REDUCER MACHINE) HIV Scr 4th Gen Non Reactive Non Reactive 03/15/2022 3:07 AM FEATHEREDGER AND REDUCER MACHINE [facility] TEST[facility] (CET) Comment: HIV Negative HIV-1/HIV-2 antibodies and HIV-1 p24 antigen were NOT detected. There is no laboratory evidence of HIV infection. Blood BLOOD SPECIMEN / Unknown Venipuncture / Unknown 03/12/2022 11:00 AM FEATHEREDGER AND REDUCER MACHINE 03/12/2022 11:41 AM FEATHEREDGER AND REDUCER MACHINE Narrative [facility] ([facility]ET) - 03/15/2022 3:07 AM FEATHEREDGER AND REDUCER MACHINE Performed at: ??01 - [address] ??[id number] Account Administrator: Seven Soto MD, Phone: ??[phone] Jhonatan Boone MD LABORATORY Performing Organization Address City/[facility]/ZIP Co de Phone Number [facility] ([facility]) [address] [place] [address] from Last 3 Months or Most Recently Relevant to Health Maintenance Care Teams Auto Fleet Manager Relationship Specialty Start Date End Date Jhonatan Boone MD [address] [place] [address] PCP - General Family Practice 07/16/22 Marlene Moore RN [phone] [place] [id number] Manager Project Management 04/08/22
--- NOTE | 2023-08-17 00:17 | ED.GENADULT ---
HPI - General Adult General Chief complaint: Urogenital Problems, Male Stated complaint: Blocked catheter Time Seen by Provider: 08/16/23 23:44 History of Present Illness HPI narrative: Patient is a 63-year-old gentleman who comes in today feeling his urinary catheter isn't working. He developed postoperative urinary retention after cholecystectomy had earlier in the week. He has no abdominal pain no fevers no chills no night sweats no dysuria. Upon arrival nurse was able to a bladder scan at [facility] 74 mL of urine in his bladder. She is able to aggressively flush the catheter and it now has spontaneous flow. Related Data Home Medications ?Medication ?Instructions ?Recorded ?Confirmed aspirin 81 mg tablet,delayed 81 mg PO DAILY 08/07/23 08/12/23 release (Ecotrin Low Strength) lisinopril 10 mg tablet 10 mg PO DAILY 08/07/23 08/12/23 metformin 500 mg tablet,extended 1,000 mg PO BID 08/07/23 08/12/23 release 24 hr potassium citrate 15 mEq (1,620 15 meq PO DAILY 08/07/23 08/12/23 mg) tablet,extended release Previous Rx's ?Medication ?Instructions ?Recorded ciprofloxacin HCl 500 mg tablet 500 mg PO BID 10 days #20 tabs 03/06/22 (Cipro) phenazopyridine 200 mg tablet 200 mg PO TID PRN pain #10 tabs 03/06/22 (Pyridium) hydrocodone 5 mg-acetaminophen 325 1 tab PO Q6H PRN pain #10 tabs 08/12/23 mg tablet sennosides 8.6 mg capsule (senna) 8.6 mg PO DAILY PRN constipation 08/12/23 #90 caps Allergies Allergy/AdvReac Type Severity Reaction Status Date / Time meperidine [From Demerol] Allergy Unknown Verified 08/12/23 06:24 Review of Systems Status of ROS: Reports: 10 or more systems reviewed and unremarkable except as noted in History and below PFSH [facility] Medical History Hematuria ?R31.9 - Hematuria, unspecified (ICD-10) Uric acid kidney stone ?N20.0 - Calculus of kidney (ICD-10) Type 2 diabetes mellitus without complication, with long-term current use of insulin ?E11.9 - Type 2 diabetes mellitus without complications (ICD-10) ?Z79.4 - custodial (current) use of insulin (ICD-10) Hypertension ?I10 - Essential (primary) hypertension (ICD-10) Surgical History Hx of anterior cruciate ligament tear reconstruction ?Z98.890 - Other specified postprocedural states (ICD-10) Social History Smoking Status: Never smoker Do you use any of these nicotine containing products: None How often do you have a drink containing alcohol: never AUDIT-C Alcohol total score: 0 Non-prescribed substance use: denies use Caffeine: Yes Exam Narrative: Exam Narrative: EXAM GENERAL: Patient appears comfortable and well. EYES: No scleral icterus. LYMPH: No supraclavicular or cervical lymphadenopathy. SKIN: Visible skin seen during exam normal or with benign process only. EXT: No dependent lower extremity pedal edema. HEART: Regular rate and rhythm with no murmurs, rubs, or gallops. LUNGS: Clear to auscultation bilaterally with no crackles or wheezes. ABD: Soft, non tender, non distended. PSYCH: Good eye contact, speech is not pressured. Sarmiento catheter in place. Const: Vital Signs, click to edit/add: Vital Signs - 24 hr 08/16/23 22:12 Temperature 98.1 F Pulse Rate [Left P ulse Oximeter] 92 Respiratory Rate 16 Blood Pressure [Ri ght Upper Arm] 124/85 Pulse Oximetry 96 Oxygen Delivery Me thod Room Air Course Course ED Course: Patient seen and examined. Vital Signs Vital signs: Initial Vital Signs Temperature 98.1 F 08/16/23 22:12 Temperature Source Temporal Artery Scan 08/16/23 22:12 Pulse Rate 92 08/16/23 22:12 Pulse Rhythm Regular 08/16/23 22:12 Respiratory Rate 16 08/16/23 22:12 Blood Pressure 124/85 08/16/23 22:12 Blood Pressure Mean 98 08/16/23 22:12 Blood Pressure Position Sitting 08/16/23 22:12 Pulse Oximetry 96 08/16/23 22:12 Oxygen Delivery Method Room Air 08/16/23 22:12 Vital Signs Temperature 98.1 F 08/16/23 22:12 Pulse Rate 92 08/16/23 22:12 Respiratory Rate 16 08/16/23 22:12 Blood Pressure 124/85 08/16/23 22:12 Pulse Oximetry 96 08/16/23 22:12 Oxygen Delivery Method Room Air 08/16/23 22:12 Temperature 98.1 F 08/16/23 22:12 Pulse Rate 92 08/16/23 22:12 Respiratory Rate 16 08/16/23 22:12 Blood Pressure 124/85 08/16/23 22:12 Pulse Oximetry 96 08/16/23 22:12 Oxygen Delivery Method Room Air 08/16/23 22:12 Medical Decision Making MDM Narrative Medical decision making narrative: Patient is a 63-year-old gentleman who is having difficulties with his catheter. We did aggressively irrigate the catheter in is now working fine. Residuals are minimal. Patient is doing well will be discharged home to continue his catheterization for the next 4-5 days before attempting to remove the catheter. Discharge Plan Discharge Clinical Impression: Postoperative urinary retention Patient Disposition: Home, Self-Care Condition: Stable Additional Instructions: Continue current care Follow-up with your doctor as needed and for catheter removal. Activity Level: No Restrictions Discharge Diet: Regular Prescriptions: No Action aspirin [Ecotrin Low Strength] 81 mg tablet,delayed release (DR/EC) 81 mg PO DAILY lisinopril 10 mg tablet 10 mg PO DAILY metformin 500 mg tablet extended release 24 hr 1,000 mg PO BID potassium citrate 15 mEq tablet extended release 15 meq PO DAILY hydrocodone-acetaminophen 5-325 mg tablet 1 tab PO Q6H PRN (Reason: pain) Qty: 10 0RF senna 8.6 mg capsule 8.6 mg PO DAILY PRN (Reason: constipation) Qty: 90 0RF ciprofloxacin HCl [Cipro] 500 mg tablet 500 mg PO BID 10 Days Qty: 20 0RF phenazopyridine [Pyridium] 200 mg tablet 200 mg PO TID PRN (Reason: pain) Qty: 10 0RF Follow Up/Referrals: Jhonatan Boone MD [Primary Care Provider] - Stand Alone Forms: MyHealth Info Instructions
--- NOTE | 2023-08-17 00:28 | ED.NURSE ---
Irrigated cath w/ 50cc sterile water. Able to draw back 60cc urine mix w/o much resistance. Deflated balloon, advanced saenz, and reinflated w/ 30cc sterile water. Flushed w/ 50cc sterile water but unable to draw back. Bladder scanned for 79cc. Tubing reconnected to bag, pt stood up and 100cc of urine flowed into bag.
== END 2023-08-17 01:00 | disposition home or self-care (01) ==
PROVIDERS: Emergency Provider Internal Medicine; PCP Family Medicine
DX: T83.098A Other mechanical complication of other urinary catheter, initial encounter (principal)
CPT/HCPCS: 51798; 99282; 99283